=== PATIENT | female | born 1990 | race Caucasian/White ===

== ENCOUNTER 2024-07-01 19:02 | Inpatient (IN) | payer OTHER, SELFPAY ==
[2024-07-01 19:43] VITALS: BP 123/85; PULSE 107; RESP 14; TEMP 36.8; O2SAT 97; BMI 28.2
--- NOTE | 2024-07-01 19:43 | ED.GENADULT ---
HPI - General Adult General Chief complaint: Psychiatric Symptoms Stated complaint: in psychosis Time Seen by Provider: 07/01/24 21:15 Source: patient Mode of arrival: ambulatory Limitations: no limitations History of Present Illness ED Provider: HPI narrative: Patient with psychotic disorder will multiple mental health conditions not taking her medication correctly paranoid about other people seen by [facility] today plan to go as inpatient tomorrow denies any suicidal ideation Related Data Home Medications ?Medication ?Instructions ?Recorded ?Confirmed buspirone 5 mg tablet 5 mg PO TID 07/01/24 07/01/24 lamotrigine 200 mg tablet 200 mg PO BID 07/01/24 07/01/24 atomoxetine 60 mg capsule 60 mg PO BEDTIME 07/02/24 07/02/24 Allergies Allergy/AdvReac Type Severity Reaction Status Date / Time No Known Allergies Allergy Verified 07/01/24 19:47 Review of Systems Review of Systems: Yes all other systems are reviewed and are negative [facility] Social History Social History Patient Tobacco Use Status: Refuse Tobacco use screen Advance Directives: No Advance Directives Information Provided: Yes Do you have a plan to hurt others: No Plan Nutrition Risks: No Nutritional Risk Patient : No Physical Exam ED Vital Signs: Vital Signs - 24 hr 07/01/24 19:43 Temperature 98.2 F Pulse Rate 107 H Respiratory Rate 14 Blood Pressure 123/85 Pulse Oximetry 97 Oxygen Delivery Method Room Air BMI result Body Mass Index 28.2 Appearance: Alert. Oriented X3. No acute distress. Eyes: PERRLA, No Nystagmus ENT: Pharynx normal. Oral Mucosa moist Neck: Normal inspection. Neck supple. CVS: Normal heart rate and rhythm. Pulses normal. Respiratory: No respiratory distress. Equal air entry bilateral, no wheezing/rales/rhonchi Abdomen: Soft and nontender. Bowel sounds are present, no mass palpable, no CVA tenderness Skin: Skin warm and dry. Normal skin color. Normal skin turgor. Extremities: No lower extremity edema. No calf tenderness psych; calm and cooperative denies any SI or HI has any hallucination Neuro: Oriented X 3. No motor deficit. No sensory deficit.No cerebellar signs , cranial nerves II-XII intact Course Course Course Narrative: RME, this is a rapid medical exam performed by Lalo Lee please refer to primary provider for complete H&P- 33-year-old female presents for evaluation of ?psychosis. Per the patient's , the patient has been taking her medications inappropriately for a few months now. The patient has been? manifesting additional personalities. The patient has a history of anxiety depression. Plan for care team consult once medically cleared Reevaluation(s) Reevaluation #1: Patient remained stable overnight no events reported we are waiting for care team eval Time: 08:51 Reevaluation #2: 07/02/2024 at 17:50 hours, Dr. Carlos De's note: The patient was accepted on to the [facility] psychiatric service. I did discuss the patient's section 12 with her and offered her is rate conditional voluntary admission. The patient did agree to sign the conditional voluntary and I do believe at this time she he was able to comprehend room the conditions. The patient will be admitted to the psychiatric service for further treatment. Time: 17:52 Medications Administered Discontinued Medications Generic Name Dose Route Start Last Admin Trade Name Iglesia PRN Reason Stop Dose Admin Buspirone HCl 5 mg 07/02/24 09:15 07/02/24 16:08 Buspirone Hcl 5 Mg Tablet PO Not Given TID LEXI Lamotrigine 200 mg 07/02/24 09:15 07/02/24 10:22 Lamotrigine 100 Mg Tablet PO 200 mg BID LEXI Administration Pt Own Medication ( 80 mg 07/02/24 13:00 07/02/24 14:01 Atomoxetine 80 Mg PO Not Given Capsule) DAILY LEXI Medical Decision Making Medical Decision Making MDM Narrative: Patient is medically clear to go to inpatient psych for psychotic disorder seen by care team already Lab Data MDM Lab Attestation statement: I reviewed the patient's lab results. 07/01/24 20:03 07/01/24 20:03 Labs: Lab Results 07/01/24 07/01/24 Range/Units 20:03 20:04 WBC 6.6 (4.8-10.8) X10*3/uL RBC 4.27 (4.20-5.50) X10*6/uL Hgb 12.6 (12.0-16.0) g/dl Hct 36.9 L (37.0-47.0) % MCV 86.4 (80.0-98.0) fL MCH 29.5 (27.0-33.0) pg MCHC 34.1 (31.0-35.0) g/dl RDW 11.9 (11.0-16.0) % Plt Count 274 (160-400) X10*3/uL MPV 10.0 (9.4-12.3) fL Immature Gran % (Auto) 0.2 (0.0-0.4) % Neut % (Auto) 61.5 (45-73) % Lymph % (Auto) 28.2 (20-40) % [place] % (Auto) 8.5 (2-11) % Eos % (Auto) 0.8 (0-4) % Baso % (Auto) 0.8 (0-2) % Lymph # (Auto) 1.9 (1.2-4.9) X10*3/uL [place] # (Auto) 0.6 (0.1-1.2) X10*3/uL Eos # (Auto) 0.1 (0.0-0.4) X10*3/uL Baso # (Auto) 0.1 (0.0-0.2) X10*3/uL Abs Immat Gran (auto) 0.01 (0.00-0.03) X10*3/uL Absolute Neuts (auto) 4.1 (2.0-8.3) x10*3/uL Absolute Nucleated RBC 0.000 (0.0-0.012) X10*3/uL Nucleated RBC % (auto) 0.0 (0.0-0.2) /100WBC Sodium 140 (135-145) mmol/L Potassium 4.1 (3.3-5.1) mmol/L Chloride 105 (96-108) mmol/L Carbon Dioxide 26 (22-29) mmol/L Anion Gap 13 (12-20) BUN 12 (9-16) mg/dL Creatinine 0.95 (0.5-1.4) mg/dL Estim Creat Clear Calc 97.8 Estimated GFR > 60 Random Glucose 119 H (60-115) mg/dL Calcium 9.8 (8.4-10.2) mg/dL Total Bilirubin 0.4 (0.0-1.0) mg/dL AST 21 (5-31) U/L ALT 18 (0-31) U/L Alkaline Phosphatase 47 (39-117) U/L Total Protein 8.1 H (6.5-8.0) g/dL Albumin 4.4 (3.5-5.0) g/dL Salicylates < 5.0 L (15-30) mg/dL Urine Opiates Screen Not Detected (Not Detect) Ur Buprenorphine Scrn Not Detected (Not Detect) ng/mL Ur Oxycodone Screen Not Detected (Not Detect) ng/mL Urine Methadone Screen Not Detected (Not Detect) ng/mL Urine Fentanyl Screen Not Detected (Not Detect) Acetaminophen < 3 (<30) mcg/mL Ur Barbiturates Screen Not Detected (Not Detect) Ur Phencyclidine Scrn Not Detected (Not Detect) Ur Amphetamines Screen Not Detected (Not Detect) U Benzodiazepines Scrn Not Detected (Not Detect) Urine Cocaine Screen Not Detected (Not Detect) U Marijuana (THC) Screen POSITIVE H (Not Detect) Ethyl Alcohol < 10 mg/dL Discharge Plan Discharge Clinical Impression: Acute psychosis, Chronic schizophrenia, Suicidal ideation Patient Disposition: Still a Patient Interventions: Edgar-Suicide Risk Severity Scale Last Done: 07/01/24 20:45 Admission Worksheet (ED) Last Done: 07/02/24 18:26 Discharge Date/Time: 07/02/24 18:27
[2024-07-01 20:16] LABS: MANUAL DIFF FLAG NO
[2024-07-01 20:17] LABS: Basophils Absolute Auto 0.1 X10*3/uL (0.0-0.2); Basophils Percent Auto 0.8 % (0-2); Eosinophils Absolute Auto 0.1 X10*3/uL (0.0-0.4); Eosinophils Percent Auto 0.8 % (0-4); Hematocrit 36.9 % (37.0-47.0); Hemoglobin 12.6 g/dl (12.0-16.0); Imm Gran Abs Auto 0.01 X10*3/uL (0.00-0.03); Imm Gran Pct Auto 0.2 % (0.0-0.4); Lymphocytes Absolute Auto 1.9 X10*3/uL (1.2-4.9); Lymphocytes Percent Auto 28.2 % (20-40); Mean Corpuscular HGB Conc 34.1 g/dl (31.0-35.0); Mean Corpuscular Hemoglobin 29.5 pg (27.0-33.0); Mean Corpuscular Volume 86.4 fL (80.0-98.0); Monocytes Absolute Auto 0.6 X10*3/uL (0.1-1.2); Monocytes Percent Auto 8.5 % (2-11); Neutrophils Absolute Auto 4.1 x10*3/uL (2.0-8.3); Neutrophils Percent Auto 61.5 % (45-73); Platelet Count 274 X10*3/uL (160-400); Red Blood Count 4.27 X10*6/uL (4.20-5.50); Red Cell Distribution Width 11.9 % (11.0-16.0); White Blood Count 6.6 X10*3/uL (4.8-10.8)
[2024-07-01 20:30] LABS: Amphetamine Screen Urine Not Detected (Not Detect); Barbiturates, Urine Not Detected (Not Detect); Benzodiazepines Screen Urine Not Detected (Not Detect); Buprenorphine Scr Not Detected (Not Detect); Cannabinoid Screen Urine POSITIVE (Not Detect); Cocaine Screen Urine Not Detected (Not Detect); Fentanyl, urine Not Detected (Not Detect); Methadone Screen, Urine Not Detected (Not Detect); Opiate Screen Urine Not Detected (Not Detect); Oxycodone Screen Urine Not Detected (Not Detect); Phencyclidine Screen Urine Not Detected (Not Detect)
[2024-07-01 20:34] LABS: Acetaminophen LAB < 3 mcg/mL (<30); Alanine Aminotransferase 18 U/L (0-31); Albumin Level 4.4 g/dL (3.5-5.0); Alkaline Phosphatase 47 U/L (39-117); Anion Gap 13 (12-20); Aspartate Amino Transferase 21 U/L (5-31); Bilirubin Total 0.4 mg/dL (0.0-1.0); Blood Urea Nitrogen 12 mg/dL (9-16); Calcium 9.8 mg/dL (8.4-10.2); Carbon Dioxide 26 mmol/L (22-29); Chloride 105 mmol/L (96-108); Creatinine Clr Calc Pharmacy 97.8; Estimated Glomerular Filt Rate > 60; Ethanol < 10 mg/dL; Glucose Random 119 mg/dL (60-115); Potassium 4.1 mmol/L (3.3-5.1); Salicylate < 5.0 mg/dL (15-30); Sodium 140 mmol/L (135-145); Total Protein 8.1 g/dL (6.5-8.0)
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
--- NOTE | 2024-07-02 | ECG_ITS ---
Test Reason : R/O PROLONGED QTC Blood Pressure : */* mmHG Vent. Rate : 89 BPM Atrial Rate : 89 BPM P-R Int : 154 ms QRS Dur : 98 ms QT Int : 372 ms P-R-T Axes : 64 53 46 degrees QTcB Int : 452 ms Normal sinus rhythm Normal ECG No previous ECGs available Referred By: Farhat Daley Electronically Signed By: KALEN SOFIA MD
--- NOTE | 2024-07-02 00:50 | PC.NURSE ---
client seems restless moving furniture in rear common area.
--- NOTE | 2024-07-02 01:08 | PC.NURSE ---
client offered for t/w to pursue a medication however client declined
--- NOTE | 2024-07-02 05:46 | PC.NURSE ---
t/w had recognized the lack of test with this client however client presently has her menses, seems unnecessary.
--- NOTE | 2024-07-02 06:21 | PC.NURSE ---
client making some assertive requests to do a wellness check/ phone call earlier than the standard time.
--- NOTE | 2024-07-02 07:31 | PC.NURSE ---
Assumed care of patient at 0645, patient appears to be in no apparent distress, calm and cooperative. Per previous RN, patient was restless all night. Patient remains an inpatient bedsearch
[2024-07-02 08:58] LABS: Appearance Urine Turbid; Color Urine Yellow; Glucose Urine UA Negative (Negative); Leukocyte Esterase Urine Negative (Negative); Nitrite Urine Negative (Negative); PH 5.5 (5.0-9.0); Specific Gravity - Urine >= 1.030 (1.005-1.025); Urine Blood Negative (Negative); Urine Ketones Trace mg/dL (Negative); Urine Protein Trace mg/dL (Neg-Trace)
[2024-07-02 08:59] LABS: UPreg QC Valid YES; Urine Pregnancy NEGATIVE (NEGATIVE)
[2024-07-02] MEDS: lamoTRIgine 100 MG TABLET 200 MG PO (10:22)
[2024-07-02] MEDS: busPIRone HCl 5 MG TABLET PO (10:22)
--- NOTE | 2024-07-02 11:12 | PHA.MEDREC ---
Pharmacy Consult ? Medication Reconciliation Pharmacy has REVIEWED the medication reconciliation completed BY NURSING. Claims match.
[2024-07-02 19:09] VITALS: BMI 28.1
[2024-07-02 20:00] VITALS: BP 118/83; PULSE 101; RESP 16; TEMP 36.7; O2SAT 98
--- NOTE | 2024-07-03 02:41 | HE.NUR.EV ---
Status Change: Pt extremely disorganized, wandering into other pt rooms, found using bathroom in another patient's room, after this went to own room and barricaded the door with desk stool Immediate Actions Taken: patient redirected Notifications: Provider Further Monitoring and Treatment: patient placed on 5 minute checks at this time
--- NOTE | 2024-07-03 07:38 | PC.NURSE ---
SHIFT NOTE: Pt admitted for psychosis, denies SI/HI/AVH, denies depression, endorses anxiety stating I'm anxious only in relation to like, where I am and who else is here and why I'm here vs why they're here Pt stops and starts sentences, poor eye contact, darting focus. Pt has difficulty completing thoughts, rapid changes in facial expression at times, rapid changes in mood during conversations. Pt will be polite with calm demeanor when starting to answer question then suddenly become irritated and brushing RN away. Patient expresses I have a feeling like anxiety, but it's like, deeper in my body Pt expresses fear over being on unit with men, fear of having a roommate, barricaded bedroom door overnight. Pt frequently pacing unit, leaving bits of tissue all over floors and chairs on unit. Pt walking into other patient rooms requiring frequent redirection. Pt does avoid being too close to others, will take backward steps and stand at a distance including during one on one interview interactions with RN.
[2024-07-03 07:59] VITALS: BP 138/97; PULSE 93; RESP 16; TEMP 36.8; O2SAT 98
[2024-07-03 08:32] LABS: Cholesterol 146 mg/dL (<200); HDL Cholesterol 51 mg/dL (>40); LDL Cholesterol Calculated 88 mg/dL (<100); Triglycerides 39 mg/dL (<150)
[2024-07-03 08:39] LABS: Estimated Average Glucose 94 mg/dL; Hemoglobin A1C 105.8173 umol/L; Hemoglobin A1c % 4.9 % (<6.0); Total Hemoglobin (HGBA1C) 3489.2398 umol/L
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
[2024-07-03 19:43] VITALS: BP 135/84; PULSE 119; RESP 16; TEMP 36.9; O2SAT 96
[2024-07-03] MEDS: busPIRone HCl 5 MG TABLET PO (21:34)
[2024-07-03] MEDS: lamoTRIgine 100 MG TABLET 200 MG PO (21:34)
[2024-07-04 07:00] VITALS: BMI 27.9
[2024-07-04 08:36] VITALS: BP 128/87; PULSE 117; TEMP 36.6; O2SAT 96
[2024-07-04] MEDS: lamoTRIgine 100 MG TABLET 200 MG PO (10:02)
[2024-07-04] MEDS: busPIRone HCl 5 MG TABLET PO ×2 (10:02→15:18)
--- NOTE | 2024-07-04 11:42 | HO.PSYCHPN ---
Subjective Subjective Date of Service: 07/04/24 Reason For Visit: Psychosis Healthcare Proxy: No Guardianship: No Medical Problems Affecting Mental Status: No Interim History: Collateral contact with pt's Angela and psychiatrist to review medications. Both report current sx are new to pt, possibly due to therapy as pt does not have coping skills to manage her emotions and may have been processing issues she may not have been prepared to work with. Will use Risperdal as grounding med. Reviewed with pt who is dissociative this afternoon, but in agreement. Medication Compliance: Yes Side effects from medications: No Attending Groups: No Review of Systems Acute medical concerns: No Review of Systems Review of Systems Yes all other systems are reviewed and are negative Mental Status Exam Mental Status Exam Patient Appearance: Fatigued and Appropriate Patient Orientation: Person, Place, Time and Situation Level of Consciousness: Alert Patient Behavior: Guarded and Talkative Mood Description: Anxious and Apprehensive Affect Description: Anxious and Apprehensive Patient Cognition Impaired: No Ability to Follow Directions: Fair Speech Pattern: Spontaneous Speech Memory Description: Episodic Impaired Hallucinations: Auditory and Visual Perceptual Disturbances: Depersonalization and Derealization Thought Process: Distracted, Rumination and Goal Oriented Thought Content: positive for Goal Oriented and positive for Suicidal Ideation Depressive Symptoms: Thoughts of /Suicide Judgement: Fair Diagnostics Vital Signs (24Hr): Vital Signs - 24 hr 07/03/24 19:43 07/04/24 08:36 Temperature 98.5 F 97.8 F Pulse Rate 119 H 117 H Respiratory Rate 16 Blood Pressure 135/84 128/87 Pulse Oximetry 96 96 Oxygen Delivery Method Room Air Room Air BMI result Body Mass Index 28.1 Labs 07/01/24 20:03 07/01/24 20:03 Labs: Laboratory Results - last 48 hr 07/03/24 07/03/24 07:51 07:52 Estimat Average Glucose 94 Hemoglobin A1c % 4.9 Triglycerides 39 Cholesterol 146 LDL Cholesterol, Calc 88 HDL Cholesterol 51 TSH 1.60 Medications Medications Current Medications Acetaminophen (Acetaminophen 325 Mg Tablet) 650 mg PO Q6H PRN PRN Reason: Headache/Pain, Scale 1-10 Al Hydroxide/Mg Hydroxide (Magnesium Hydrox/Alum Hydrox 30 Ml Oral.Susp) 30 ml PO Q6H PRN PRN Reason: Heartburn/Nausea Buspirone HCl (Buspirone Hcl 5 Mg Tablet) 5 mg PO TID [facility] Last Admin: 07/04/24 10:02 Dose: 5 mg Hydroxyzine HCl (Hydroxyzine Hcl 25 Mg Tablet) 25 mg PO Q6H PRN PRN Reason: mild anxiety Lamotrigine (Lamotrigine 100 Mg Tablet) 200 mg PO BID [facility] Last Admin: 07/04/24 10:02 Dose: 200 mg Magnesium Hydroxide (Milk Of Magnesia 30 Ml Oral.Susp) 30 ml PO DAILY PRN PRN Reason: Constipation Nicotine (Nicotine 21 Mg Patch.Td24) 21 mg TRANSDERMA DAILY PRN PRN Reason: smoking cessation Nicotine Polacrilex (Nicotine Polacrilex 2 Mg Gum) 4 mg BUCCAL Q2H PRN PRN Reason: Nicotine Cravings Pt Own Medication ( (Strattera 60 Mg)) 60 mg PO DAILY [facility] Olanzapine (Olanzapine 5 Mg Tablet) 5 mg PO TID PRN PRN Reason: agitation Trazodone HCl (Trazodone Hcl 50 Mg Tablet) 50 mg PO BEDTIME MRX1 PRN PRN Reason: Insomnia Allergies Allergies Allergy/AdvReac Type Severity Reaction Status Date / Time No Known Allergies Allergy Verified 07/01/24 19:47 Assessment & Plan Assessment & Plan (1) PTSD (post-traumatic stress disorder): Status: Acute Code(s): F43.10 - Post-traumatic stress disorder, unspecified Plan PTSD. Plan: Admit, CV, 15 minute checks Collateral Contacts Diagnostics as needed Medication eval Full milieu Discharge planning 07/04: Scheduled Risperdal along with prn for grounding. Reason for continued inpatient stay Substantial Risk for: rapid decompensation Time Spent With Patient Time: Total time managing care of this patient today ____ minutes.
[2024-07-04] MEDS: STRATTERA 60 MG 60 EACH PO (11:46)
[2024-07-04] MEDS: hydrOXYzine HCL 25 MG TABLET PO (12:25)
[2024-07-04 15:49] VITALS: BMI 27.9
[2024-07-04 20:00] VITALS: BP 131/87; PULSE 118; RESP 16; TEMP 36.6; O2SAT 99
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
[2024-07-05] MEDS: Haloperidol Lactate 5 MG/ML VIAL IM (00:18)
[2024-07-05] MEDS: LORazepam 2 MG/ML VIAL IM (00:18)
[2024-07-05] MEDS: diphenhydrAMINE HCL 50 MG/ML VIAL IM (00:18)
--- NOTE | 2024-07-05 00:23 | HO.BHRESTREX ---
Behavioral Restraint Exam Behavioral Health Restraint Exam Type of Restraint: Physical Hold and Medication Reason for Restraint: Substantial Risk of Harm to Others Medical Concerns for Restraint: No medical concerns, pt w/o acute inj / no noted resp/VS abnormalities Behavioral Assessment / Plan: No further behavioral concerns, continue current plan.
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
[2024-07-05 08:00] VITALS: BP 122/87; PULSE 98; TEMP 36.6; O2SAT 97
[2024-07-05] MEDS: risperiDONE 1 MG TABLET PO (09:13)
[2024-07-05] MEDS: busPIRone HCl 5 MG TABLET PO ×3 (09:13→20:38)
[2024-07-05] MEDS: STRATTERA 60 MG 60 EACH PO (09:13)
[2024-07-05] MEDS: lamoTRIgine 100 MG TABLET 200 MG PO ×2 (09:13→20:38)
--- NOTE | 2024-07-05 10:37 | P.PNPSI_ITS ---
Subjective Subjective Date of Service: 07/05/24 Reason For Visit: Psychosis Subjective Notes: Conditional Voluntary Healthcare Proxy: No Guardianship: No Medical Problems Affecting Mental Status: No Interim History: Per team, pt required restraint last evening-jumped over the nursing station to pull fire alarm as she thought she saw a weapon and felt she needed to inform police. Discussed addition of Risperdal again. Brief meeting with pt, continues dissociative and overwhelmed. Medication Compliance: Yes Side effects from medications: No Attending Groups: No Review of Systems Acute medical concerns: No Review of Systems Review of Systems Yes all other systems are reviewed and are negative Mental Status Exam Mental Status Exam Patient Appearance: Fatigued and Appropriate Patient Orientation: Person, Place, Time and Situation Level of Consciousness: Alert Patient Behavior: Guarded and Talkative Mood Description: Anxious and Apprehensive Affect Description: Anxious and Apprehensive Patient Cognition Impaired: No Ability to Follow Directions: Fair Speech Pattern: Spontaneous Speech Memory Description: Episodic Impaired Hallucinations: Auditory and Visual Perceptual Disturbances: Depersonalization and Derealization Thought Process: Distracted, Rumination and Goal Oriented Thought Content: positive for Goal Oriented and positive for Suicidal Ideation Depressive Symptoms: Thoughts of /Suicide Judgement: Fair Diagnostics Vital Signs (24Hr): Vital Signs - 24 hr 07/04/24 20:00 Temperature 97.8 F Pulse Rate 118 H Respiratory Rate 16 Blood Pressure 131/87 Pulse Oximetry 99 Oxygen Delivery Method Room Air BMI result Body Mass Index 27.9 Labs 07/01/24 20:03 07/01/24 20:03 Medications Medications Current Medications Acetaminophen (Acetaminophen 325 Mg Tablet) 650 mg PO Q6H PRN PRN Reason: Headache/Pain, Scale 1-10 Al Hydroxide/Mg Hydroxide (Magnesium Hydrox/Alum Hydrox 30 Ml Oral.Susp) 30 ml PO Q6H PRN PRN Reason: Heartburn/Nausea Buspirone HCl (Buspirone Hcl 5 Mg Tablet) 5 mg PO TID [facility] Last Admin: 07/05/24 09:13 Dose: 5 mg Hydroxyzine HCl (Hydroxyzine Hcl 25 Mg Tablet) 25 mg PO Q6H PRN PRN Reason: mild anxiety Last Admin: 07/04/24 12:25 Dose: 25 mg Lamotrigine (Lamotrigine 100 Mg Tablet) 200 mg PO BID [facility] Last Admin: 07/05/24 09:13 Dose: 200 mg Magnesium Hydroxide (Milk Of Magnesia 30 Ml Oral.Susp) 30 ml PO DAILY PRN PRN Reason: Constipation Nicotine (Nicotine 21 Mg Patch.Td24) 21 mg TRANSDERMA DAILY PRN PRN Reason: smoking cessation Nicotine Polacrilex (Nicotine Polacrilex 2 Mg Gum) 4 mg BUCCAL Q2H PRN PRN Reason: Nicotine Cravings Pt Own Medication ( (Strattera 60 Mg)) 60 mg PO DAILY [facility] Last Admin: 07/05/24 09:13 Dose: 60 mg Risperidone (Risperidone 1 Mg Tablet) 1 mg PO BID [facility] Last Admin: 07/05/24 09:13 Dose: 1 mg Risperidone (Risperidone 1 Mg Tablet) 1 mg PO BID PRN PRN Reason: psychosis, dissociation,agitation Trazodone HCl (Trazodone Hcl 50 Mg Tablet) 50 mg PO BEDTIME MRX1 PRN PRN Reason: Insomnia Allergies Allergies Allergy/AdvReac Type Severity Reaction Status Date / Time No Known Allergies Allergy Verified 07/01/24 19:47 Assessment & Plan Assessment & Plan (1) PTSD (post-traumatic stress disorder): Status: Acute Code(s): F43.10 - Post-traumatic stress disorder, unspecified Plan PTSD. Plan: Admit, CV, 15 minute checks Collateral Contacts Diagnostics as needed Medication eval Full milieu Discharge planning 07/05: Continue current regime Reason for continued inpatient stay Substantial Risk for: rapid decompensation Time Spent With Patient Time: Total time managing care of this patient today ____ minutes.
[2024-07-05 20:00] VITALS: RESP 15
--- NOTE | 2024-07-06 09:25 | P.PNPSI_ITS ---
Subjective Subjective Date of Service: 07/06/24 Reason For Visit: Psychosis Interim History: Taking Risperdal more consistently and seeing some symptom relief. Team reports sx are more acute in the a.m. and do improve as the day progresses. Appears less fearful and more relaxed. Medication Compliance: Yes Side effects from medications: No Attending Groups: Intermittent Review of Systems Acute medical concerns: No Medical Review of Systems: unchanged Review of Systems Review of Systems Yes all other systems are reviewed and are negative Mental Status Exam Mental Status Exam Patient Appearance: Fatigued and Appropriate Patient Orientation: Person, Place, Time and Situation Level of Consciousness: Alert Patient Behavior: Guarded and Talkative Mood Description: Anxious and Apprehensive Affect Description: Anxious and Apprehensive Patient Cognition Impaired: No Ability to Follow Directions: Fair Speech Pattern: Spontaneous Speech Memory Description: Episodic Impaired Hallucinations: Auditory and Visual Perceptual Disturbances: Depersonalization and Derealization Thought Process: Distracted, Rumination and Goal Oriented Thought Content: positive for Goal Oriented and positive for Suicidal Ideation Depressive Symptoms: Thoughts of /Suicide Judgement: Fair Diagnostics Vital Signs (24Hr): Vital Signs - 24 hr 07/05/24 20:00 Respiratory Rate 15 BMI result Body Mass Index 27.9 Labs 07/01/24 20:03 07/01/24 20:03 Medications Medications Current Medications Acetaminophen (Acetaminophen 325 Mg Tablet) 650 mg PO Q6H PRN PRN Reason: Headache/Pain, Scale 1-10 Al Hydroxide/Mg Hydroxide (Magnesium Hydrox/Alum Hydrox 30 Ml Oral.Susp) 30 ml PO Q6H PRN PRN Reason: Heartburn/Nausea Buspirone HCl (Buspirone Hcl 5 Mg Tablet) 5 mg PO TID [facility] Last Admin: 07/05/24 20:38 Dose: 5 mg Hydroxyzine HCl (Hydroxyzine Hcl 25 Mg Tablet) 25 mg PO Q6H PRN PRN Reason: mild anxiety Last Admin: 07/04/24 12:25 Dose: 25 mg Lamotrigine (Lamotrigine 100 Mg Tablet) 200 mg PO BID [facility] Last Admin: 07/05/24 20:38 Dose: 200 mg Magnesium Hydroxide (Milk Of Magnesia 30 Ml Oral.Susp) 30 ml PO DAILY PRN PRN Reason: Constipation Nicotine (Nicotine 21 Mg Patch.Td24) 21 mg TRANSDERMA DAILY PRN PRN Reason: smoking cessation Nicotine Polacrilex (Nicotine Polacrilex 2 Mg Gum) 4 mg BUCCAL Q2H PRN PRN Reason: Nicotine Cravings Pt Own Medication ( (Strattera 60 Mg)) 60 mg PO DAILY [facility] Last Admin: 07/05/24 09:13 Dose: 60 mg Risperidone (Risperidone 1 Mg Tablet) 1 mg PO BID [facility] Last Admin: 07/05/24 20:43 Dose: Not Given Risperidone (Risperidone 1 Mg Tablet) 1 mg PO BID PRN PRN Reason: psychosis, dissociation,agitation Trazodone HCl (Trazodone Hcl 50 Mg Tablet) 50 mg PO BEDTIME MRX1 PRN PRN Reason: Insomnia Allergies Allergies Allergy/AdvReac Type Severity Reaction Status Date / Time No Known Allergies Allergy Verified 07/01/24 19:47 Assessment & Plan Assessment & Plan (1) PTSD (post-traumatic stress disorder): Status: Acute Code(s): F43.10 - Post-traumatic stress disorder, unspecified Plan PTSD. Plan: Admit, CV, 15 minute checks Collateral Contacts Diagnostics as needed Medication eval Full milieu Discharge planning 07/05: Continue current regime 07/06: Continue current regime Reason for continued inpatient stay Substantial Risk for: rapid decompensation Time Spent With Patient Time: Total time managing care of this patient today ____ minutes.
[2024-07-06] MEDS: busPIRone HCl 5 MG TABLET PO ×3 (09:50→22:09)
[2024-07-06] MEDS: STRATTERA 60 MG 60 EACH PO (09:50)
[2024-07-06] MEDS: risperiDONE 1 MG TABLET PO ×2 (09:50→22:09)
[2024-07-06] MEDS: lamoTRIgine 100 MG TABLET 200 MG PO ×2 (09:50→22:09)
[2024-07-07 08:00] VITALS: BP 144/86; PULSE 105; RESP 20; TEMP 37.3; O2SAT 98
--- NOTE | 2024-07-07 09:34 | HO.PSYCHPN ---
Subjective Subjective Date of Service: 07/07/24 Reason For Visit: Psychosis Subjective Notes: Conditional Voluntary Healthcare Proxy: No Guardianship: No Medical Problems Affecting Mental Status: No Interim History: Some improvement per pt and team however continues with paranoia and risk of elopement. States Angie is helping and she is compliant. Will consider increase for 07/08. Told team this afternoon she heard voices in the vent of a microphone broadcasting her trauma Medication Compliance: Yes Side effects from medications: No Attending Groups: Intermittent Review of Systems Acute medical concerns: No Review of Systems Review of Systems denies Mental Status Exam Mental Status Exam Patient Appearance: Fatigued and Appropriate Patient Orientation: Person, Place, Time and Situation Level of Consciousness: Alert Patient Behavior: Guarded and Talkative Mood Description: Anxious and Apprehensive Affect Description: Anxious and Apprehensive Patient Cognition Impaired: No Ability to Follow Directions: Fair Speech Pattern: Spontaneous Speech Memory Description: Episodic Impaired Hallucinations: Auditory and Visual Perceptual Disturbances: Depersonalization and Derealization Thought Process: Distracted, Rumination and Goal Oriented Thought Content: positive for Goal Oriented and positive for Suicidal Ideation Depressive Symptoms: Thoughts of /Suicide Judgement: Fair Diagnostics Vital Signs (24Hr): BMI result Body Mass Index 27.9 Labs 07/01/24 20:03 07/01/24 20:03 Medications Medications Current Medications Acetaminophen (Acetaminophen 325 Mg Tablet) 650 mg PO Q6H PRN PRN Reason: Headache/Pain, Scale 1-10 Al Hydroxide/Mg Hydroxide (Magnesium Hydrox/Alum Hydrox 30 Ml Oral.Susp) 30 ml PO Q6H PRN PRN Reason: Heartburn/Nausea Buspirone HCl (Buspirone Hcl 5 Mg Tablet) 5 mg PO TID [facility] Last Admin: 07/06/24 22:09 Dose: 5 mg Hydroxyzine HCl (Hydroxyzine Hcl 25 Mg Tablet) 25 mg PO Q6H PRN PRN Reason: mild anxiety Last Admin: 07/04/24 12:25 Dose: 25 mg Lamotrigine (Lamotrigine 100 Mg Tablet) 200 mg PO BID [facility] Last Admin: 07/06/24 22:09 Dose: 200 mg Magnesium Hydroxide (Milk Of Magnesia 30 Ml Oral.Susp) 30 ml PO DAILY PRN PRN Reason: Constipation Nicotine (Nicotine 21 Mg Patch.Td24) 21 mg TRANSDERMA DAILY PRN PRN Reason: smoking cessation Nicotine Polacrilex (Nicotine Polacrilex 2 Mg Gum) 4 mg BUCCAL Q2H PRN PRN Reason: Nicotine Cravings Pt Own Medication ( (Strattera 60 Mg)) 60 mg PO DAILY [facility] Last Admin: 07/06/24 09:50 Dose: 60 mg Risperidone (Risperidone 1 Mg Tablet) 1 mg PO BID [facility] Last Admin: 07/06/24 22:09 Dose: 1 mg Risperidone (Risperidone 1 Mg Tablet) 1 mg PO BID PRN PRN Reason: psychosis, dissociation,agitation Trazodone HCl (Trazodone Hcl 50 Mg Tablet) 50 mg PO BEDTIME MRX1 PRN PRN Reason: Insomnia Allergies Allergies Allergy/AdvReac Type Severity Reaction Status Date / Time No Known Allergies Allergy Verified 07/01/24 19:47 Assessment & Plan Assessment & Plan (1) PTSD (post-traumatic stress disorder): Status: Acute Code(s): F43.10 - Post-traumatic stress disorder, unspecified Plan PTSD. Plan: Admit, CV, 15 minute checks Collateral Contacts Diagnostics as needed Medication eval Full milieu Discharge planning 07/05: Continue current regime 07/07: Continue rx and risperdal Reason for continued inpatient stay Substantial Risk for: rapid decompensation Time Spent With Patient Time: Total time managing care of this patient today ____ minutes.
[2024-07-07] MEDS: STRATTERA 60 MG 60 EACH PO (11:09)
[2024-07-07] MEDS: lamoTRIgine 100 MG TABLET 200 MG PO ×2 (11:09→20:51)
[2024-07-07] MEDS: busPIRone HCl 5 MG TABLET PO ×3 (11:09→20:51)
[2024-07-07] MEDS: risperiDONE 1 MG TABLET PO ×3 (11:09→20:51)
[2024-07-07 19:34] VITALS: BP 152/88; PULSE 127; RESP 18; O2SAT 94
--- NOTE | 2024-07-08 08:25 | HO.PSYCHPN ---
Subjective Subjective Date of Service: 07/08/24 Reason For Visit: Psychosis Subjective Notes: Conditional Voluntary Healthcare Proxy: No Guardianship: No Medical Problems Affecting Mental Status: No Interim History: Risperdal increased. Pt asking team today to medicate symptoms which is a change in her position on meds and a decrease in her fear of treatment. Medication Compliance: Yes Side effects from medications: No Attending Groups: Intermittent Review of Systems Acute medical concerns: No Medical Review of Systems: unchanged Review of Systems Review of Systems Yes all other systems are reviewed and are negative Mental Status Exam Mental Status Exam Patient Appearance: Fatigued and Appropriate Patient Orientation: Person, Place, Time and Situation Level of Consciousness: Alert Patient Behavior: Guarded and Talkative Mood Description: Anxious and Apprehensive Affect Description: Anxious and Apprehensive Patient Cognition Impaired: No Ability to Follow Directions: Fair Speech Pattern: Spontaneous Speech Memory Description: Episodic Impaired Hallucinations: Auditory and Visual Perceptual Disturbances: Depersonalization and Derealization Thought Process: Distracted, Rumination and Goal Oriented Thought Content: positive for Goal Oriented and positive for Suicidal Ideation Depressive Symptoms: Thoughts of /Suicide Judgement: Fair Diagnostics Vital Signs (24Hr): Vital Signs - 24 hr 07/07/24 19:34 Pulse Rate 127 H Respiratory Rate 18 Blood Pressure 152/88 H Pulse Oximetry 94 Oxygen Delivery Method Room Air BMI result Body Mass Index 27.9 Labs 07/01/24 20:03 07/01/24 20:03 Medications Medications Current Medications Acetaminophen (Acetaminophen 325 Mg Tablet) 650 mg PO Q6H PRN PRN Reason: Headache/Pain, Scale 1-10 Al Hydroxide/Mg Hydroxide (Magnesium Hydrox/Alum Hydrox 30 Ml Oral.Susp) 30 ml PO Q6H PRN PRN Reason: Heartburn/Nausea Buspirone HCl (Buspirone Hcl 5 Mg Tablet) 5 mg PO TID [facility] Last Admin: 07/07/24 20:51 Dose: 5 mg Hydroxyzine HCl (Hydroxyzine Hcl 25 Mg Tablet) 25 mg PO Q6H PRN PRN Reason: mild anxiety Last Admin: 07/04/24 12:25 Dose: 25 mg Lamotrigine (Lamotrigine 100 Mg Tablet) 200 mg PO BID [facility] Last Admin: 07/07/24 20:51 Dose: 200 mg Magnesium Hydroxide (Milk Of Magnesia 30 Ml Oral.Susp) 30 ml PO DAILY PRN PRN Reason: Constipation Nicotine (Nicotine 21 Mg Patch.Td24) 21 mg TRANSDERMA DAILY PRN PRN Reason: smoking cessation Nicotine Polacrilex (Nicotine Polacrilex 2 Mg Gum) 4 mg BUCCAL Q2H PRN PRN Reason: Nicotine Cravings Pt Own Medication ( (Strattera 60 Mg)) 60 mg PO DAILY [facility] Last Admin: 07/07/24 11:09 Dose: 60 mg Risperidone (Risperidone 1 Mg Tablet) 1 mg PO BID [facility] Last Admin: 07/07/24 20:51 Dose: 1 mg Risperidone (Risperidone 1 Mg Tablet) 1 mg PO BID PRN PRN Reason: psychosis, dissociation,agitation Last Admin: 07/07/24 15:31 Dose: 1 mg Trazodone HCl (Trazodone Hcl 50 Mg Tablet) 50 mg PO BEDTIME MRX1 PRN PRN Reason: Insomnia Allergies Allergies Allergy/AdvReac Type Severity Reaction Status Date / Time No Known Allergies Allergy Verified 07/01/24 19:47 Assessment & Plan Assessment & Plan (1) PTSD (post-traumatic stress disorder): Status: Acute Code(s): F43.10 - Post-traumatic stress disorder, unspecified Plan PTSD. Plan: Admit, CV, 15 minute checks Collateral Contacts Diagnostics as needed Medication eval Full milieu Discharge planning 07/05: Continue current regime 07/06: Continue current regime 07/08: Increase Risperdal to 2 mg bid Reason for continued inpatient stay Substantial Risk for: rapid decompensation Time Spent With Patient Time: Total time managing care of this patient today ____ minutes.
[2024-07-08] MEDS: risperiDONE 1 MG TABLET PO (12:33)
[2024-07-08] MEDS: lamoTRIgine 100 MG TABLET 200 MG PO ×2 (12:33→21:02)
[2024-07-08] MEDS: busPIRone HCl 5 MG TABLET PO ×3 (12:33→21:02)
[2024-07-08] MEDS: STRATTERA 60 MG 60 EACH PO (12:34)
[2024-07-08] MEDS: hydrOXYzine HCL 25 MG TABLET PO (14:01)
[2024-07-08] MEDS: risperiDONE 2 MG TABLET PO ×2 (14:10→21:02)
[2024-07-09 08:00] VITALS: BP 130/79; PULSE 106; RESP 18; TEMP 37.1; O2SAT 100
[2024-07-09] MEDS: lamoTRIgine 100 MG TABLET 200 MG PO ×2 (09:01→22:33)
[2024-07-09] MEDS: busPIRone HCl 5 MG TABLET PO ×3 (09:01→22:33)
[2024-07-09] MEDS: risperiDONE 2 MG TABLET PO ×2 (09:01→22:33)
[2024-07-09] MEDS: STRATTERA 60 MG 60 EACH PO (09:07)
--- NOTE | 2024-07-09 09:25 | P.PNPSI_ITS ---
Subjective Subjective Date of Service: 07/09/24 Reason For Visit: Psychosis Interim History: Met with patient; discussed with team; reviewed chart pt reports she is a little less anxious but feels AH remains and maybe even increased... she reports b/l hand tremors which are observable, which she says started when Risperdal was increased to 2mg BID. She asked if dose can be lessened... going to groups Mental Status Exam Mental Status Exam Narrative: Pt is alert and oriented; behavior is cooperative, isolative but friendly on approach and calm; patient is not in distress; dressed in casual attire with head scarf; adequate grooming; mood is described as anxious and affect congruent; eye contact appropriate; Speech is a little soft; normal rate and prosody and not pressured; some psychomotor retardation present; thought process is organized and goal directed; Thought content with some paranoid delusional thinking; on tx; denies any SI/HI. AH present; Patients insight and judgment impaired but somewhat improved Diagnostics Vital Signs (24Hr): Vital Signs - 24 hr 07/09/24 08:00 Temperature 98.7 F Pulse Rate 106 H Respiratory Rate 18 Blood Pressure 130/79 Pulse Oximetry 100 Oxygen Delivery Method Room Air BMI result Body Mass Index 27.9 Labs 07/01/24 20:03 07/01/24 20:03 Medications Medications Current Medications Acetaminophen (Acetaminophen 325 Mg Tablet) 650 mg PO Q6H PRN PRN Reason: Headache/Pain, Scale 1-10 Al Hydroxide/Mg Hydroxide (Magnesium Hydrox/Alum Hydrox 30 Ml Oral.Susp) 30 ml PO Q6H PRN PRN Reason: Heartburn/Nausea Buspirone HCl (Buspirone Hcl 5 Mg Tablet) 5 mg PO TID [facility] Last Admin: 07/09/24 09:01 Dose: 5 mg Hydroxyzine HCl (Hydroxyzine Hcl 25 Mg Tablet) 25 mg PO Q6H PRN PRN Reason: mild anxiety Last Admin: 07/08/24 14:01 Dose: 25 mg Lamotrigine (Lamotrigine 100 Mg Tablet) 200 mg PO BID [facility] Last Admin: 07/09/24 09:01 Dose: 200 mg Magnesium Hydroxide (Milk Of Magnesia 30 Ml Oral.Susp) 30 ml PO DAILY PRN PRN Reason: Constipation Nicotine (Nicotine 21 Mg Patch.Td24) 21 mg TRANSDERMA DAILY PRN PRN Reason: smoking cessation Nicotine Polacrilex (Nicotine Polacrilex 2 Mg Gum) 4 mg BUCCAL Q2H PRN PRN Reason: Nicotine Cravings Pt Own Medication ( (Strattera 60 Mg)) 60 mg PO DAILY [facility] Last Admin: 07/09/24 09:07 Dose: 60 mg Risperidone (Risperidone 1 Mg Tablet) 1 mg PO BID PRN PRN Reason: psychosis, dissociation,agitation Last Admin: 07/08/24 12:33 Dose: 1 mg Risperidone (Risperidone 2 Mg Tablet) 2 mg PO BID [facility] Last Admin: 07/09/24 09:01 Dose: 2 mg Trazodone HCl (Trazodone Hcl 50 Mg Tablet) 50 mg PO BEDTIME MRX1 PRN PRN Reason: Insomnia Allergies Allergies Allergy/AdvReac Type Severity Reaction Status Date / Time No Known Allergies Allergy Verified 07/01/24 19:47 Assessment & Plan Assessment & Plan (1) PTSD (post-traumatic stress disorder): Status: Acute Code(s): F43.10 - Post-traumatic stress disorder, unspecified Plan PTSD. Plan: Admit, CV, 15 minute checks Collateral Contacts Diagnostics as needed Medication eval Full milieu Discharge planning 07/05: Continue current regime 07/06: Continue current regime 07/08: Increase Risperdal to 2 mg bid 07/09 pt reports she is a little less anxious but feels AH remains and maybe even increased... she reports b/l hand tremors which are observable, which she says started when Risperdal was increased to 2mg BID. She asked if dose can be lessened... -going to groups -some paranoid thinking? -lowered risperdal to 1mg daily and 2mg qhs Patient educated on: diagnosis and medication risk/benefits Informed Consent: understands and further education needed Reason for continued inpatient stay Substantial Risk for: inability to function Time Spent With Patient Time: Total time managing care of this patient today ____ minutes.
[2024-07-09 13:50] LABS: Glucose, Whole Blood 96 mg/dL (60-115)
[2024-07-09 20:00] VITALS: BP 115/68; PULSE 67; TEMP 36.7; O2SAT 100
[2024-07-10 08:00] VITALS: BP 130/92; PULSE 107; TEMP 36.4; O2SAT 98
[2024-07-10] MEDS: busPIRone HCl 5 MG TABLET PO (08:41)
[2024-07-10] MEDS: lamoTRIgine 100 MG TABLET 200 MG PO (08:41)
[2024-07-10] MEDS: STRATTERA 60 MG 60 EACH PO (08:41)
--- NOTE | 2024-07-10 13:11 | P.PNPSI_ITS ---
Subjective Subjective Date of Service: 07/10/24 Reason For Visit: Psychosis Subjective Notes: Conditional Voluntary Healthcare Proxy: No Guardianship: No Medical Problems Affecting Mental Status: No Interim History: Bilateral hand tremor. Risperdal decreased 07/09 without effect. Pt refusing med at this point. Not trusting of team. Reports high anxiety, over-thinking her trauma, health, sleep, meds. She states she is from a family who did not believe in medications and struggles with this. Review of olanzapine option. Pt believes she is bruised due to meds. She agrees to increase buspirone to 10 mg tid, then changed her mind. Very fearful and guarded today. She agrees to labs. Medication Compliance: Intermittent Side effects from medications: Yes (bilateral hand tremor) Attending Groups: No Review of Systems Acute medical concerns: No Medical Review of Systems: unchanged Review of Systems Review of Systems bruising, hand tremor Mental Status Exam Mental Status Exam Patient Appearance: Fatigued and Appropriate Patient Orientation: Person, Place, Time and Situation Level of Consciousness: Alert Patient Behavior: Guarded and Talkative Mood Description: Anxious and Apprehensive Affect Description: Anxious and Apprehensive Patient Cognition Impaired: No Ability to Follow Directions: Fair Speech Pattern: Spontaneous Speech Memory Description: Episodic Impaired Hallucinations: Auditory and Visual Perceptual Disturbances: Depersonalization and Derealization Thought Process: Distracted, Rumination and Goal Oriented Thought Content: positive for Goal Oriented and positive for Suicidal Ideation Depressive Symptoms: Thoughts of /Suicide Judgement: Fair Diagnostics Vital Signs (24Hr): Vital Signs - 24 hr 07/09/24 20:00 07/10/24 08:00 Temperature 98.1 F 97.5 F Pulse Rate 67 107 H Blood Pressure 115/68 130/92 H Pulse Oximetry 100 98 Oxygen Delivery Method Room Air Room Air BMI result Body Mass Index 27.9 Labs 07/11/24 09:50 07/11/24 09:50 Labs: Laboratory Results - last 48 hr 07/09/24 12:33 POC Glucose 96 Medications Medications Current Medications Acetaminophen (Acetaminophen 325 Mg Tablet) 650 mg PO Q6H PRN PRN Reason: Headache/Pain, Scale 1-10 Al Hydroxide/Mg Hydroxide (Magnesium Hydrox/Alum Hydrox 30 Ml Oral.Susp) 30 ml PO Q6H PRN PRN Reason: Heartburn/Nausea Buspirone HCl (Buspirone Hcl 5 Mg Tablet) 5 mg PO TID [facility] Last Admin: 07/10/24 08:41 Dose: 5 mg Hydroxyzine HCl (Hydroxyzine Hcl 25 Mg Tablet) 25 mg PO Q6H PRN PRN Reason: mild anxiety Last Admin: 07/08/24 14:01 Dose: 25 mg Lamotrigine (Lamotrigine 100 Mg Tablet) 200 mg PO BID [facility] Last Admin: 07/10/24 08:41 Dose: 200 mg Magnesium Hydroxide (Milk Of Magnesia 30 Ml Oral.Susp) 30 ml PO DAILY PRN PRN Reason: Constipation Nicotine (Nicotine 21 Mg Patch.Td24) 21 mg TRANSDERMA DAILY PRN PRN Reason: smoking cessation Nicotine Polacrilex (Nicotine Polacrilex 2 Mg Gum) 4 mg BUCCAL Q2H PRN PRN Reason: Nicotine Cravings Pt Own Medication ( (Strattera 60 Mg)) 60 mg PO DAILY [facility] Last Admin: 07/10/24 08:41 Dose: 60 mg Risperidone (Risperidone 1 Mg Tablet) 1 mg PO BID PRN PRN Reason: psychosis, dissociation,agitation Last Admin: 07/08/24 12:33 Dose: 1 mg Risperidone (Risperidone 2 Mg Tablet) 2 mg PO BEDTIME [facility] Risperidone (Risperidone 1 Mg Tablet) 1 mg PO DAILY [facility] Trazodone HCl (Trazodone Hcl 50 Mg Tablet) 50 mg PO BEDTIME MRX1 PRN PRN Reason: Insomnia Allergies Allergies Allergy/AdvReac Type Severity Reaction Status Date / Time No Known Allergies Allergy Verified 07/01/24 19:47 Assessment & Plan Assessment & Plan (1) PTSD (post-traumatic stress disorder): Status: Acute Code(s): F43.10 - Post-traumatic stress disorder, unspecified Plan PTSD. Plan: Admit, CV, 15 minute checks Collateral Contacts Diagnostics as needed Medication eval Full milieu Discharge planning 07/05: Continue current regime 07/06: Continue current regime 07/08: Increase Risperdal to 2 mg bid 07/09 pt reports she is a little less anxious but feels AH remains and maybe even increased... she reports b/l hand tremors which are observable, which she says started when Risperdal was increased to 2mg BID. She asked if dose can be lessened... -going to groups -some paranoid thinking? -lowered risperdal to 1mg daily and 2mg qhs 07/10: labs in the a.m. family meeting 07/12 3pm olanzapine/haldol prn pt refusing risperdal Reason for continued inpatient stay Substantial Risk for: rapid decompensation Time Spent With Patient Time: Total time managing care of this patient today ____ minutes.
[2024-07-10 20:00] VITALS: BP 143/81; PULSE 105; RESP 18; TEMP 37.1; O2SAT 99
[2024-07-11 08:00] VITALS: BP 143/89; PULSE 120; RESP 18; TEMP 36.6; O2SAT 95
[2024-07-11] MEDS: lamoTRIgine 100 MG TABLET 200 MG PO ×2 (08:57→22:17)
[2024-07-11] MEDS: STRATTERA 60 MG 60 EACH PO (08:58)
[2024-07-11 10:22] LABS: MANUAL DIFF FLAG NO
[2024-07-11 10:36] LABS: Basophils Percent Auto 0.6 % (0-2); Eosinophils Absolute Auto 0.1 X10*3/uL (0.0-0.4); Eosinophils Percent Auto 1.1 % (0-4); Hemoglobin 13.8 g/dl (12.0-16.0); Imm Gran Abs Auto 0.01 X10*3/uL (0.00-0.03); Imm Gran Pct Auto 0.2 % (0.0-0.4); Lymphocytes Absolute Auto 1.6 X10*3/uL (1.2-4.9); Lymphocytes Percent Auto 25.5 % (20-40); Mean Corpuscular HGB Conc 34.5 g/dl (31.0-35.0); Mean Corpuscular Hemoglobin 29.8 pg (27.0-33.0); Mean Corpuscular Volume 86.4 fL (80.0-98.0); Mean Platelet Volume 10.2 fL (9.4-12.3); Monocytes Absolute Auto 0.5 X10*3/uL (0.1-1.2); Monocytes Percent Auto 7.8 % (2-11); Neutrophils Percent Auto 64.8 % (45-73); Platelet Count 260 X10*3/uL (160-400); Red Blood Count 4.63 X10*6/uL (4.20-5.50); Red Cell Distribution Width 11.9 % (11.0-16.0); White Blood Count 6.2 X10*3/uL (4.8-10.8)
[2024-07-11 10:59] LABS: Alanine Aminotransferase 27 U/L (0-31); Albumin Level 4.6 g/dL (3.5-5.0); Alkaline Phosphatase 48 U/L (39-117); Anion Gap 14 (12-20); Aspartate Amino Transferase 23 U/L (5-31); Bilirubin Total 0.4 mg/dL (0.0-1.0); Blood Urea Nitrogen 13 mg/dL (9-16); Calcium 10.3 mg/dL (8.4-10.2); Carbon Dioxide 26 mmol/L (22-29); Chloride 105 mmol/L (96-108); Creatinine Clr Calc Pharmacy 102.9; Estimated Glomerular Filt Rate > 60; Glucose Random 105 mg/dL (60-115); Potassium 3.9 mmol/L (3.3-5.1); Sodium 141 mmol/L (135-145); Total Protein 8.7 g/dL (6.5-8.0)
--- NOTE | 2024-07-11 11:39 | P.PNPSI_ITS ---
Subjective Subjective Date of Service: 07/11/24 Reason For Visit: Psychosis Subjective Notes: Conditional Voluntary Healthcare Proxy: No Guardianship: No Medical Problems Affecting Mental Status: No Interim History: Refusing meds labs completed, results wnl. pt given copies for review. Psychotic, baracaded her room with her mattress. Reports bruising, tingling in hands, believes we are out to harm her with medicine. Family meetng 07/12 3pm Medication Compliance: Intermittent Side effects from medications: Yes (tingling in hands, reports bruising however no bruising evident) Attending Groups: No Review of Systems Acute medical concerns: No Medical Review of Systems: unchanged Review of Systems Review of Systems hands tingling, bruising Mental Status Exam Mental Status Exam Patient Appearance: Fatigued and Appropriate Patient Orientation: Person, Place, Time and Situation Level of Consciousness: Alert Patient Behavior: Guarded and Talkative Mood Description: Anxious and Apprehensive Affect Description: Anxious and Apprehensive Patient Cognition Impaired: No Ability to Follow Directions: Fair Speech Pattern: Spontaneous Speech Memory Description: Episodic Impaired Hallucinations: Auditory and Visual Perceptual Disturbances: Depersonalization and Derealization Thought Process: Distracted, Rumination and Goal Oriented Thought Content: positive for Goal Oriented and positive for Suicidal Ideation Depressive Symptoms: Thoughts of /Suicide Judgement: Fair Diagnostics Vital Signs (24Hr): Vital Signs - 24 hr 07/10/24 20:00 07/11/24 08:00 Temperature 98.7 F 97.8 F Pulse Rate 105 H 120 H Respiratory Rate 18 18 Blood Pressure 143/81 H 143/89 H Pulse Oximetry 99 95 Oxygen Delivery Method Room Air Room Air BMI result Body Mass Index 27.9 Labs 07/11/24 09:50 07/11/24 09:50 Labs: Laboratory Results - last 48 hr 07/09/24 07/11/24 12:33 09:50 WBC 6.2 RBC 4.63 Hgb 13.8 Hct 40.0 MCV 86.4 MCH 29.8 MCHC 34.5 RDW 11.9 Plt Count 260 MPV 10.2 Immature Gran % (Auto) 0.2 Neut % (Auto) 64.8 Lymph % (Auto) 25.5 Keith % (Auto) 7.8 Eos % (Auto) 1.1 Baso % (Auto) 0.6 Lymph # (Auto) 1.6 Keith # (Auto) 0.5 Eos # (Auto) 0.1 Baso # (Auto) 0.0 Abs Immat Gran (auto) 0.01 Absolute Neuts (auto) 4.0 Absolute Nucleated RBC 0.000 Nucleated RBC % (auto) 0.0 Sodium 141 Potassium 3.9 Chloride 105 Carbon Dioxide 26 Anion Gap 14 BUN 13 Creatinine 0.90 Estim Creat Clear Calc 102.9 Estimated GFR > 60 POC Glucose 96 Random Glucose 105 Calcium 10.3 H Total Bilirubin 0.4 AST 23 ALT 27 Alkaline Phosphatase 48 Total Protein 8.7 H Albumin 4.6 Medications Medications Current Medications Acetaminophen (Acetaminophen 325 Mg Tablet) 650 mg PO Q6H PRN PRN Reason: Headache/Pain, Scale 1-10 Al Hydroxide/Mg Hydroxide (Magnesium Hydrox/Alum Hydrox 30 Ml Oral.Susp) 30 ml PO Q6H PRN PRN Reason: Heartburn/Nausea Buspirone HCl (Buspirone Hcl 5 Mg Tablet) 5 mg PO TID [facility] Last Admin: 07/11/24 09:43 Dose: Not Given Haloperidol (Haloperidol 5 Mg Tablet) 5 mg PO Q4H PRN PRN Reason: Psychosis Hydroxyzine HCl (Hydroxyzine Hcl 25 Mg Tablet) 25 mg PO Q6H PRN PRN Reason: mild anxiety Last Admin: 07/08/24 14:01 Dose: 25 mg Lamotrigine (Lamotrigine 100 Mg Tablet) 200 mg PO BID [facility] Last Admin: 07/11/24 08:57 Dose: 200 mg Magnesium Hydroxide (Milk Of Magnesia 30 Ml Oral.Susp) 30 ml PO DAILY PRN PRN Reason: Constipation Nicotine (Nicotine 21 Mg Patch.Td24) 21 mg TRANSDERMA DAILY PRN PRN Reason: smoking cessation Nicotine Polacrilex (Nicotine Polacrilex 2 Mg Gum) 4 mg BUCCAL Q2H PRN PRN Reason: Nicotine Cravings Pt Own Medication ( (Strattera 60 Mg)) 60 mg PO DAILY [facility] Last Admin: 07/11/24 08:58 Dose: 60 mg Olanzapine (Olanzapine Odt 10 Mg Tab.Rapdis) 10 mg TRANSLINGU BID PRN PRN Reason: agitation Risperidone (Risperidone 1 Mg Tablet) 1 mg PO BID PRN PRN Reason: psychosis, dissociation,agitation Last Admin: 07/08/24 12:33 Dose: 1 mg Risperidone (Risperidone 2 Mg Tablet) 2 mg PO BEDTIME [facility] Last Admin: 07/10/24 23:41 Dose: Not Given Risperidone (Risperidone 1 Mg Tablet) 1 mg PO DAILY [facility] Last Admin: 07/11/24 09:44 Dose: Not Given Trazodone HCl (Trazodone Hcl 50 Mg Tablet) 50 mg PO BEDTIME MRX1 PRN PRN Reason: Insomnia Allergies Allergies Allergy/AdvReac Type Severity Reaction Status Date / Time No Known Allergies Allergy Verified 07/01/24 19:47 Assessment & Plan Assessment & Plan (1) PTSD (post-traumatic stress disorder): Status: Acute Code(s): F43.10 - Post-traumatic stress disorder, unspecified Plan PTSD. Plan: Admit, CV, 15 minute checks Collateral Contacts Diagnostics as needed Medication eval Full milieu Discharge planning 07/05: Continue current regime 07/06: Continue current regime 07/08: Increase Risperdal to 2 mg bid 07/09 pt reports she is a little less anxious but feels AH remains and maybe even increased... she reports b/l hand tremors which are observable, which she says started when Risperdal was increased to 2mg BID. She asked if dose can be lessened... -going to groups -some paranoid thinking? -lowered risperdal to 1mg daily and 2mg qhs 07/11- prn haldol, olanzapine family meeting 07/12. Reason for continued inpatient stay Substantial Risk for: rapid decompensation Time Spent With Patient Time: Total time managing care of this patient today ____ minutes.
[2024-07-11] MEDS: busPIRone HCl 5 MG TABLET PO ×2 (13:08→22:19)
[2024-07-11 20:00] VITALS: BP 111/76; PULSE 126; TEMP 36.7; O2SAT 98
[2024-07-11] MEDS: risperiDONE 2 MG TABLET PO (22:21)
--- NOTE | 2024-07-12 13:59 | P.PNPSI_ITS ---
Subjective Subjective Date of Service: 07/12/24 Reason For Visit: Psychosis Subjective Notes: Conditional Voluntary Healthcare Proxy: No Guardianship: No Medical Problems Affecting Mental Status: No Interim History: Family meeting with partnerAngela and prescriber, Marilyn [phone]. Pt with several ruminative themes about medications, lack of trust, fear of being harmed with treatment. Worries as she is adopted and does not have a clear history of her health that we will harm her. Pt will trial Olanzapine 5 mg bid for the weekend. Medication Compliance: Intermittent Side effects from medications: No Attending Groups: No Review of Systems Acute medical concerns: No Medical Review of Systems: unchanged Review of Systems Review of Systems hand tremor is absent Mental Status Exam Mental Status Exam Patient Appearance: Fatigued and Appropriate Patient Orientation: Person, Place, Time and Situation Level of Consciousness: Alert Patient Behavior: Guarded and Talkative Mood Description: Anxious and Apprehensive Affect Description: Anxious and Apprehensive Patient Cognition Impaired: No Ability to Follow Directions: Fair Speech Pattern: Spontaneous Speech Memory Description: Episodic Impaired Hallucinations: Auditory and Visual Perceptual Disturbances: Depersonalization and Derealization Thought Process: Distracted, Rumination and Goal Oriented Thought Content: positive for Goal Oriented and positive for Suicidal Ideation Depressive Symptoms: Thoughts of /Suicide Judgement: Fair Diagnostics Vital Signs (24Hr): Vital Signs - 24 hr 07/11/24 20:00 Temperature 98.0 F Pulse Rate 126 H Blood Pressure 111/76 Pulse Oximetry 98 Oxygen Delivery Method Room Air BMI result Body Mass Index 27.9 Labs 07/11/24 09:50 07/11/24 09:50 Labs: Laboratory Results - last 48 hr 07/11/24 09:50 WBC 6.2 RBC 4.63 Hgb 13.8 Hct 40.0 MCV 86.4 MCH 29.8 MCHC 34.5 RDW 11.9 Plt Count 260 MPV 10.2 Immature Gran % (Auto) 0.2 Neut % (Auto) 64.8 Lymph % (Auto) 25.5 [place] % (Auto) 7.8 Eos % (Auto) 1.1 Baso % (Auto) 0.6 Lymph # (Auto) 1.6 [place] # (Auto) 0.5 Eos # (Auto) 0.1 Baso # (Auto) 0.0 Abs Immat Gran (auto) 0.01 Absolute Neuts (auto) 4.0 Absolute Nucleated RBC 0.000 Nucleated RBC % (auto) 0.0 Sodium 141 Potassium 3.9 Chloride 105 Carbon Dioxide 26 Anion Gap 14 BUN 13 Creatinine 0.90 Estim Creat Clear Calc 102.9 Estimated GFR > 60 Random Glucose 105 Calcium 10.3 H Total Bilirubin 0.4 AST 23 ALT 27 Alkaline Phosphatase 48 Total Protein 8.7 H Albumin 4.6 Medications Medications Current Medications Acetaminophen (Acetaminophen 325 Mg Tablet) 650 mg PO Q6H PRN PRN Reason: Headache/Pain, Scale 1-10 Al Hydroxide/Mg Hydroxide (Magnesium Hydrox/Alum Hydrox 30 Ml Oral.Susp) 30 ml PO Q6H PRN PRN Reason: Heartburn/Nausea Buspirone HCl (Buspirone Hcl 5 Mg Tablet) 5 mg PO TID [facility] Last Admin: 07/12/24 10:40 Dose: Not Given Haloperidol (Haloperidol 5 Mg Tablet) 5 mg PO Q4H PRN PRN Reason: Psychosis Hydroxyzine HCl (Hydroxyzine Hcl 25 Mg Tablet) 25 mg PO Q6H PRN PRN Reason: mild anxiety Last Admin: 07/08/24 14:01 Dose: 25 mg Lamotrigine (Lamotrigine 100 Mg Tablet) 200 mg PO BID [facility] Last Admin: 07/12/24 10:40 Dose: Not Given Magnesium Hydroxide (Milk Of Magnesia 30 Ml Oral.Susp) 30 ml PO DAILY PRN PRN Reason: Constipation Nicotine (Nicotine 21 Mg Patch.Td24) 21 mg TRANSDERMA DAILY PRN PRN Reason: smoking cessation Nicotine Polacrilex (Nicotine Polacrilex 2 Mg Gum) 4 mg BUCCAL Q2H PRN PRN Reason: Nicotine Cravings Pt Own Medication ( (Strattera 60 Mg)) 60 mg PO DAILY [facility] Last Admin: 07/12/24 10:40 Dose: Not Given Olanzapine (Olanzapine Odt 10 Mg Tab.Rapdis) 10 mg TRANSLINGU BID PRN PRN Reason: agitation Risperidone (Risperidone 1 Mg Tablet) 1 mg PO BID PRN PRN Reason: psychosis, dissociation,agitation Last Admin: 07/08/24 12:33 Dose: 1 mg Risperidone (Risperidone 2 Mg Tablet) 2 mg PO BEDTIME [facility] Last Admin: 07/11/24 22:21 Dose: 2 mg Risperidone (Risperidone 1 Mg Tablet) 1 mg PO DAILY [facility] Last Admin: 07/12/24 10:40 Dose: Not Given Trazodone HCl (Trazodone Hcl 50 Mg Tablet) 50 mg PO BEDTIME MRX1 PRN PRN Reason: Insomnia Allergies Allergies Allergy/AdvReac Type Severity Reaction Status Date / Time No Known Allergies Allergy Verified 07/01/24 19:47 Assessment & Plan Assessment & Plan (1) PTSD (post-traumatic stress disorder): Status: Acute Code(s): F43.10 - Post-traumatic stress disorder, unspecified Plan PTSD. Plan: Admit, CV, 15 minute checks Collateral Contacts Diagnostics as needed Medication eval Full milieu Discharge planning 07/05: Continue current regime 07/06: Continue current regime 07/08: Increase Risperdal to 2 mg bid 07/09 pt reports she is a little less anxious but feels AH remains and maybe even increased... she reports b/l hand tremors which are observable, which she says started when Risperdal was increased to 2mg BID. She asked if dose can be lessened... -going to groups -some paranoid thinking? -lowered risperdal to 1mg daily and 2mg qhs 07/12: DC Risperdal Olanzapine 5 mg bid Reason for continued inpatient stay Substantial Risk for: rapid decompensation Time Spent With Patient Time: Total time managing care of this patient today ____ minutes.
[2024-07-12] MEDS: OLANZapine ODT 10 MG TAB.RAPDIS TRANSLINGU (17:00)
[2024-07-12] MEDS: busPIRone HCl 5 MG TABLET PO (21:18)
[2024-07-12] MEDS: lamoTRIgine 100 MG TABLET 200 MG PO (21:18)
[2024-07-12] MEDS: OLANZapine 5 MG TABLET PO (21:18)
[2024-07-13 08:31] VITALS: BP 123/72; PULSE 115; RESP 18; TEMP 36.8; O2SAT 100
--- NOTE | 2024-07-13 10:34 | HO.PSYCHPN ---
Subjective Subjective Date of Service: 07/13/24 Reason For Visit: Psychosis Interim History: met with pt; discussed with team; reviewed chart yesterday, more confused, going into peers rooms pt says she's feeling a little better; says she no longer thinks that /child are in danger and says i saw them yesterday and they seemed fine... She acknowledged that she did think such thoughts days ago, but no longer. AH remains but not as intrusive and no longer saying family in danger. Talked about going into peers rooms; she says she was confused but knew it was not her room; says she's clear this is not allowed and will not enter others rooms again. Says no problems with Zyprexa so far Mental Status Exam Mental Status Exam Narrative: Pt is alert and oriented; behavior is cooperative, isolative but friendly on approach and calm; patient is not in distress; dressed in casual attire, adequate grooming; mood is described as ok and affect congruent,somewhat anxious; eye contact appropriate; Speech is a little soft; normal rate and prosody and not pressured; some psychomotor excitation present; thought process is more organized and goal directed; Thought content with some paranoid delusional thinking but less so; no SI/HI. AH present but less bother some; Patients insight and judgment impaired but somewhat improved Diagnostics Vital Signs (24Hr): Vital Signs - 24 hr 07/13/24 08:31 Temperature 98.2 F Pulse Rate 115 H Respiratory Rate 18 Blood Pressure 123/72 Pulse Oximetry 100 Oxygen Delivery Method Room Air BMI result Body Mass Index 27.9 Labs 07/11/24 09:50 07/11/24 09:50 Labs: Laboratory Results - last 48 hr 07/11/24 09:50 WBC 6.2 RBC 4.63 Hgb 13.8 Hct 40.0 MCV 86.4 MCH 29.8 MCHC 34.5 RDW 11.9 Plt Count 260 MPV 10.2 Immature Gran % (Auto) 0.2 Neut % (Auto) 64.8 Lymph % (Auto) 25.5 [place] % (Auto) 7.8 Eos % (Auto) 1.1 Baso % (Auto) 0.6 Lymph # (Auto) 1.6 [place] # (Auto) 0.5 Eos # (Auto) 0.1 Baso # (Auto) 0.0 Abs Immat Gran (auto) 0.01 Absolute Neuts (auto) 4.0 Absolute Nucleated RBC 0.000 Nucleated RBC % (auto) 0.0 Sodium 141 Potassium 3.9 Chloride 105 Carbon Dioxide 26 Anion Gap 14 BUN 13 Creatinine 0.90 Estim Creat Clear Calc 102.9 Estimated GFR > 60 Random Glucose 105 Calcium 10.3 H Total Bilirubin 0.4 AST 23 ALT 27 Alkaline Phosphatase 48 Total Protein 8.7 H Albumin 4.6 Medications Medications Current Medications Acetaminophen (Acetaminophen 325 Mg Tablet) 650 mg PO Q6H PRN PRN Reason: Headache/Pain, Scale 1-10 Al Hydroxide/Mg Hydroxide (Magnesium Hydrox/Alum Hydrox 30 Ml Oral.Susp) 30 ml PO Q6H PRN PRN Reason: Heartburn/Nausea Buspirone HCl (Buspirone Hcl 5 Mg Tablet) 5 mg PO TID [facility] Last Admin: 07/12/24 21:18 Dose: 5 mg Haloperidol (Haloperidol 5 Mg Tablet) 5 mg PO Q4H PRN PRN Reason: Psychosis Hydroxyzine HCl (Hydroxyzine Hcl 25 Mg Tablet) 25 mg PO Q6H PRN PRN Reason: mild anxiety Last Admin: 07/08/24 14:01 Dose: 25 mg Lamotrigine (Lamotrigine 100 Mg Tablet) 200 mg PO BID [facility] Last Admin: 07/12/24 21:18 Dose: 200 mg Magnesium Hydroxide (Milk Of Magnesia 30 Ml Oral.Susp) 30 ml PO DAILY PRN PRN Reason: Constipation Nicotine (Nicotine 21 Mg Patch.Td24) 21 mg TRANSDERMA DAILY PRN PRN Reason: smoking cessation Nicotine Polacrilex (Nicotine Polacrilex 2 Mg Gum) 4 mg BUCCAL Q2H PRN PRN Reason: Nicotine Cravings Pt Own Medication ( (Strattera 60 Mg)) 60 mg PO DAILY [facility] Last Admin: 07/12/24 10:40 Dose: Not Given Olanzapine (Olanzapine Odt 10 Mg Tab.Rapdis) 10 mg TRANSLINGU BID PRN PRN Reason: agitation Last Admin: 07/12/24 17:00 Dose: 10 mg Olanzapine (Olanzapine 5 Mg Tablet) 5 mg PO BID [facility] Last Admin: 07/12/24 21:18 Dose: 5 mg Trazodone HCl (Trazodone Hcl 50 Mg Tablet) 50 mg PO BEDTIME MRX1 PRN PRN Reason: Insomnia Allergies Allergies Allergy/AdvReac Type Severity Reaction Status Date / Time No Known Allergies Allergy Verified 07/01/24 19:47 Assessment & Plan Assessment & Plan (1) PTSD (post-traumatic stress disorder): Status: Acute Code(s): F43.10 - Post-traumatic stress disorder, unspecified Plan PTSD. Plan: Admit, CV, 15 minute checks Collateral Contacts Diagnostics as needed Medication eval Full milieu Discharge planning 07/05: Continue current regime 07/06: Continue current regime 07/08: Increase Risperdal to 2 mg bid 07/09 pt reports she is a little less anxious but feels AH remains and maybe even increased... she reports b/l hand tremors which are observable, which she says started when Risperdal was increased to 2mg BID. She asked if dose can be lessened... -going to groups -some paranoid thinking? -lowered risperdal to 1mg daily and 2mg qhs 07/12: DC Risperdal Olanzapine 5 mg bid 07/13 yesterday, more confused, going into peers rooms pt says she's feeling a little better; says she no longer thinks that /child are in danger and says i saw them yesterday and they seemed fine... She acknowledged that she did think such thoughts days ago, but no longer. AH remains but not as intrusive and no longer saying family in danger. Talked about going into peers rooms; she says she was confused but knew it was not her room; says she's clear this is not allowed and will not enter others rooms again. Says no problems with Zyprexa so far Patient educated on: diagnosis and medication risk/benefits Informed Consent: understands, does not understand and further education needed Reason for continued inpatient stay Substantial Risk for: inability to function Time Spent With Patient Time: Total time managing care of this patient today ____ minutes.
[2024-07-13] MEDS: lamoTRIgine 100 MG TABLET 200 MG PO (10:39)
[2024-07-13] MEDS: busPIRone HCl 5 MG TABLET PO ×2 (10:39→15:52)
[2024-07-13] MEDS: STRATTERA 60 MG 60 EACH PO (10:39)
[2024-07-13] MEDS: OLANZapine 5 MG TABLET PO (10:40)
[2024-07-13] MEDS: OLANZapine ODT 10 MG TAB.RAPDIS TRANSLINGU (16:34)
[2024-07-13 19:38] VITALS: BP 133/84; PULSE 106; RESP 16; TEMP 36.8; O2SAT 99
[2024-07-14] MEDS: OLANZapine ODT 10 MG TAB.RAPDIS TRANSLINGU ×2 (02:07→10:58)
[2024-07-14] MEDS: hydrOXYzine HCL 25 MG TABLET PO (02:30)
[2024-07-14 07:51] VITALS: BP 125/78; PULSE 108; RESP 18; TEMP 36.8; O2SAT 98
[2024-07-14] MEDS: OLANZapine 5 MG TABLET PO (08:32)
[2024-07-14] MEDS: busPIRone HCl 5 MG TABLET PO ×3 (08:32→21:00)
[2024-07-14] MEDS: lamoTRIgine 100 MG TABLET 200 MG PO ×2 (08:32→21:00)
[2024-07-14] MEDS: STRATTERA 60 MG 60 EACH PO (08:33)
--- NOTE | 2024-07-14 09:57 | HO.PSYCHPN ---
Subjective Subjective Date of Service: 07/14/24 Reason For Visit: Psychosis Interim History: Met with patient; discussed with team Paranoid thoughts seem to be dissipating. Patient has been taking several Zyprexa 10 mg doses of PRNs; discussed and patient agrees to increase scheduled Zyprexa to 10 mg b.i.d.. Patient still has AH but says it is a balance between thoughts and voices and seems more of a narration. Mental Status Exam Mental Status Exam Narrative: Pt is alert and oriented; behavior is cooperative, isolative but friendly on approach and calm; patient is not in distress; dressed in casual attire, adequate grooming; mood is described as ok and affect congruent, a little more calm; eye contact appropriate; Speech is a normal volume, normal rate and prosody and not pressured; no psychomotor excitation; thought process is more organized and goal directed, though still a little convoluted; Thought content with dissipating paranoid delusional; no SI/HI. AH present but less bother some; Patients insight and judgment impaired but seems to be improving Diagnostics Vital Signs (24Hr): Vital Signs - 24 hr 07/13/24 19:38 07/14/24 07:51 Temperature 98.3 F 98.3 F Pulse Rate 106 H 108 H Respiratory Rate 16 18 Blood Pressure 133/84 125/78 Pulse Oximetry 99 98 Oxygen Delivery Method Room Air Room Air BMI result Body Mass Index 27.9 Labs 07/11/24 09:50 07/11/24 09:50 Medications Medications Current Medications Acetaminophen (Acetaminophen 325 Mg Tablet) 650 mg PO Q6H PRN PRN Reason: Headache/Pain, Scale 1-10 Al Hydroxide/Mg Hydroxide (Magnesium Hydrox/Alum Hydrox 30 Ml Oral.Susp) 30 ml PO Q6H PRN PRN Reason: Heartburn/Nausea Buspirone HCl (Buspirone Hcl 5 Mg Tablet) 5 mg PO TID [facility] Last Admin: 07/14/24 08:32 Dose: 5 mg Hydroxyzine HCl (Hydroxyzine Hcl 25 Mg Tablet) 25 mg PO Q6H PRN PRN Reason: mild anxiety Last Admin: 07/14/24 02:30 Dose: 25 mg Lamotrigine (Lamotrigine 100 Mg Tablet) 200 mg PO BID [facility] Last Admin: 07/14/24 08:32 Dose: 200 mg Magnesium Hydroxide (Milk Of Magnesia 30 Ml Oral.Susp) 30 ml PO DAILY PRN PRN Reason: Constipation Nicotine (Nicotine 21 Mg Patch.Td24) 21 mg TRANSDERMA DAILY PRN PRN Reason: smoking cessation Nicotine Polacrilex (Nicotine Polacrilex 2 Mg Gum) 4 mg BUCCAL Q2H PRN PRN Reason: Nicotine Cravings Pt Own Medication ( (Strattera 60 Mg)) 60 mg PO DAILY [facility] Last Admin: 07/14/24 08:33 Dose: 60 mg Olanzapine (Olanzapine Odt 10 Mg Tab.Rapdis) 10 mg TRANSLINGU BID PRN PRN Reason: agitation/psychosis Last Admin: 07/14/24 02:07 Dose: 10 mg Olanzapine (Olanzapine 5 Mg Tablet) 5 mg PO BID [facility] Last Admin: 07/14/24 08:32 Dose: 5 mg Trazodone HCl (Trazodone Hcl 50 Mg Tablet) 50 mg PO BEDTIME MRX1 PRN PRN Reason: Insomnia Allergies Allergies Allergy/AdvReac Type Severity Reaction Status Date / Time No Known Allergies Allergy Verified 07/01/24 19:47 Assessment & Plan Assessment & Plan (1) Chronic schizophrenia: Status: Acute Code(s): F20.9 - Schizophrenia, unspecified (2) PTSD (post-traumatic stress disorder): Status: Acute Code(s): F43.10 - Post-traumatic stress disorder, unspecified Plan PTSD. Plan: Admit, CV, 15 minute checks Collateral Contacts Diagnostics as needed Medication eval Full milieu Discharge planning 07/05: Continue current regime 07/06: Continue current regime 07/08: Increase Risperdal to 2 mg bid 07/09 pt reports she is a little less anxious but feels AH remains and maybe even increased... she reports b/l hand tremors which are observable, which she says started when Risperdal was increased to 2mg BID. She asked if dose can be lessened... -going to groups -some paranoid thinking? -lowered risperdal to 1mg daily and 2mg qhs 07/12: DC Risperdal Olanzapine 5 mg bid 07/13 yesterday, more confused, going into peers rooms pt says she's feeling a little better; says she no longer thinks that /child are in danger and says i saw them yesterday and they seemed fine... She acknowledged that she did think such thoughts days ago, but no longer. AH remains but not as intrusive and no longer saying family in danger. Talked about going into peers rooms; she says she was confused but knew it was not her room; says she's clear this is not allowed and will not enter others rooms again. Says no problems with Zyprexa so far 07/14 Paranoid thoughts seem to be dissipating. Patient has been taking several Zyprexa 10 mg doses of PRNs; discussed and patient agrees to increase scheduled Zyprexa to 10 mg b.i.d.. Patient still has AH but says it is a balance between thoughts and voices and seems more of a narration. -Increase to Zyprexa 10 mg b.i.d. Patient educated on: diagnosis and medication risk/benefits Informed Consent: understands and further education needed Reason for continued inpatient stay Substantial Risk for: inability to function Time Spent With Patient Time: Total time managing care of this patient today ____ minutes.
[2024-07-14 19:49] VITALS: BP 133/81; PULSE 122; RESP 15; TEMP 36.4; O2SAT 99
[2024-07-14] MEDS: OLANZapine 10 MG TABLET PO (21:00)
[2024-07-15] MEDS: OLANZapine ODT 10 MG TAB.RAPDIS TRANSLINGU ×2 (04:35→14:45)
[2024-07-15 08:01] VITALS: RESP 18
[2024-07-15] MEDS: OLANZapine 10 MG TABLET PO (08:51)
[2024-07-15] MEDS: STRATTERA 60 MG 60 EACH PO (08:51)
[2024-07-15] MEDS: lamoTRIgine 100 MG TABLET 200 MG PO ×2 (08:51→20:40)
[2024-07-15] MEDS: busPIRone HCl 5 MG TABLET PO ×3 (08:51→20:42)
--- NOTE | 2024-07-15 10:37 | P.PNPSI_ITS ---
Subjective Subjective Date of Service: 07/15/24 Reason For Visit: Psychosis Subjective Notes: Conditional Voluntary Healthcare Proxy: No Guardianship: No Medical Problems Affecting Mental Status: No Interim History: Pt reports she if finding Olanzapine helpful and asks today to increase her dosing. She reports she is feeling improved grounding sx mgt and was clear, smiling and doing yoga when we met today. I think this is the medicine that will help me. Denies SI,HI, AH,VH. No evidence of response to internal stimuli today, increasingly alert and attentive Medication Compliance: Yes Side effects from medications: No Attending Groups: No Review of Systems Acute medical concerns: No Review of Systems Review of Systems Denies Mental Status Exam Mental Status Exam Patient Appearance: Appropriate Patient Orientation: Person, Place, Time and Situation Level of Consciousness: Alert Patient Behavior: Appropriate, Talkative, Cooperative and Good Eye Contact Mood Description: Anxious Affect Description: Anxious Patient Cognition Impaired: No Ability to Follow Directions: Good Speech Pattern: Spontaneous Speech Memory Description: Episodic Impaired Hallucinations: None Delusions: Not Present Thought Process: Intact and Distracted Thought Content: positive for Intact, positive for [place], positive for Circumstantial and positive for Suicidal Ideation (denies) Depressive Symptoms: Increased Anxiety Judgement: Fair Diagnostics Vital Signs (24Hr): Vital Signs - 24 hr 07/14/24 19:49 07/15/24 08:01 Temperature 97.5 F Pulse Rate 122 H Respiratory Rate 15 18 Blood Pressure 133/81 Pulse Oximetry 99 BMI result Body Mass Index 27.9 Labs 07/11/24 09:50 07/11/24 09:50 Medications Medications Current Medications Acetaminophen (Acetaminophen 325 Mg Tablet) 650 mg PO Q6H PRN PRN Reason: Headache/Pain, Scale 1-10 Al Hydroxide/Mg Hydroxide (Magnesium Hydrox/Alum Hydrox 30 Ml Oral.Susp) 30 ml PO Q6H PRN PRN Reason: Heartburn/Nausea Buspirone HCl (Buspirone Hcl 5 Mg Tablet) 5 mg PO TID [facility] Last Admin: 07/15/24 08:51 Dose: 5 mg Hydroxyzine HCl (Hydroxyzine Hcl 25 Mg Tablet) 25 mg PO Q6H PRN PRN Reason: mild anxiety Last Admin: 07/14/24 02:30 Dose: 25 mg Lamotrigine (Lamotrigine 100 Mg Tablet) 200 mg PO BID [facility] Last Admin: 07/15/24 08:51 Dose: 200 mg Magnesium Hydroxide (Milk Of Magnesia 30 Ml Oral.Susp) 30 ml PO DAILY PRN PRN Reason: Constipation Nicotine (Nicotine 21 Mg Patch.Td24) 21 mg TRANSDERMA DAILY PRN PRN Reason: smoking cessation Nicotine Polacrilex (Nicotine Polacrilex 2 Mg Gum) 4 mg BUCCAL Q2H PRN PRN Reason: Nicotine Cravings Pt Own Medication ( (Strattera 60 Mg)) 60 mg PO DAILY [facility] Last Admin: 07/15/24 08:51 Dose: 60 mg Olanzapine (Olanzapine Odt 10 Mg Tab.Rapdis) 10 mg TRANSLINGU BID PRN PRN Reason: agitation/psychosis Last Admin: 07/15/24 04:35 Dose: 10 mg Olanzapine (Olanzapine 10 Mg Tablet) 10 mg PO BID [facility] Last Admin: 07/15/24 08:51 Dose: 10 mg Trazodone HCl (Trazodone Hcl 50 Mg Tablet) 50 mg PO BEDTIME MRX1 PRN PRN Reason: Insomnia Allergies Allergies Allergy/AdvReac Type Severity Reaction Status Date / Time No Known Allergies Allergy Verified 07/01/24 19:47 Assessment & Plan Assessment & Plan (1) Chronic schizophrenia: Status: Acute Code(s): F20.9 - Schizophrenia, unspecified (2) PTSD (post-traumatic stress disorder): Status: Acute Code(s): F43.10 - Post-traumatic stress disorder, unspecified Plan PTSD. Plan: Admit, CV, 15 minute checks Collateral Contacts Diagnostics as needed Medication eval Full milieu Discharge planning 07/05: Continue current regime 07/06: Continue current regime 07/08: Increase Risperdal to 2 mg bid 07/09 pt reports she is a little less anxious but feels AH remains and maybe even increased... she reports b/l hand tremors which are observable, which she says started when Risperdal was increased to 2mg BID. She asked if dose can be lessened... -going to groups -some paranoid thinking? -lowered risperdal to 1mg daily and 2mg qhs 07/12: DC Risperdal Olanzapine 5 mg bid 07/13 yesterday, more confused, going into peers rooms pt says she's feeling a little better; says she no longer thinks that /child are in danger and says i saw them yesterday and they seemed fine... She acknowledged that she did think such thoughts days ago, but no longer. AH remains but not as intrusive and no longer saying family in danger. Talked about going into peers rooms; she says she was confused but knew it was not her room; says she's clear this is not allowed and will not enter others rooms again. Says no problems with Zyprexa so far 07/14 Paranoid thoughts seem to be dissipating. Patient has been taking several Zyprexa 10 mg doses of PRNs; discussed and patient agrees to increase scheduled Zyprexa to 10 mg b.i.d.. Patient still has AH but says it is a balance between thoughts and voices and seems more of a narration. -Increase to Zyprexa 10 mg b.i.d. 07/15 Increase Olanzapine to 15 mg bid Change prn Olanzapine to 5 mg bid prn Reason for continued inpatient stay Substantial Risk for: rapid decompensation Time Spent With Patient Time: Total time managing care of this patient today ____ minutes.
[2024-07-15] MEDS: hydrOXYzine HCL 25 MG TABLET PO (16:11)
[2024-07-15] MEDS: OLANZapine 7.5 MG TABLET 15 MG PO (20:41)
[2024-07-15] MEDS: OLANZapine 5 MG TABLET PO (22:05)
[2024-07-15 22:45] VITALS: BP 106/65; PULSE 121; TEMP 37.1; O2SAT 97
[2024-07-16] MEDS: hydrOXYzine HCL 25 MG TABLET PO ×3 (02:45→22:55)
[2024-07-16] MEDS: OLANZapine 5 MG TABLET PO ×3 (02:52→17:51)
[2024-07-16 08:00] VITALS: BP 124/78; PULSE 87; RESP 18; TEMP 36.5; O2SAT 98
[2024-07-16] MEDS: OLANZapine 7.5 MG TABLET 15 MG PO ×2 (09:16→20:54)
[2024-07-16] MEDS: STRATTERA 60 MG 60 EACH PO (09:16)
[2024-07-16] MEDS: busPIRone HCl 5 MG TABLET PO (09:17)
[2024-07-16] MEDS: lamoTRIgine 100 MG TABLET 200 MG PO ×2 (09:17→20:54)
--- NOTE | 2024-07-16 12:16 | P.PNPSI_ITS ---
Subjective Subjective Date of Service: 07/16/24 Reason For Visit: Psychosis Subjective Notes: Conditional Voluntary Healthcare Proxy: No Guardianship: No Medical Problems Affecting Mental Status: No Interim History: Buspirone increased to 10 mg tid Pt reports she is comfortable with Olanzapine and with increase to 15 mg bid and prn 5 bid. Today, she has appropriate eye contact, is interactive, does not appear to be responding to internal stimuli. She reports six hours of sleep. Medication Compliance: Yes Side effects from medications: No Attending Groups: Intermittent Review of Systems Acute medical concerns: No Medical Review of Systems: unchanged Review of Systems Review of Systems denies Mental Status Exam Mental Status Exam Patient Appearance: Appropriate Patient Orientation: Person, Place, Time and Situation Level of Consciousness: Alert Patient Behavior: Appropriate, Talkative, Cooperative and Good Eye Contact Mood Description: Anxious Affect Description: Anxious Patient Cognition Impaired: No Ability to Follow Directions: Good Speech Pattern: Spontaneous Speech Memory Description: Episodic Impaired Hallucinations: None Delusions: Not Present Thought Process: Intact and Distracted Thought Content: positive for Intact, positive for [place], positive for Circumstantial and positive for Suicidal Ideation (denies) Depressive Symptoms: Increased Anxiety Judgement: Fair Diagnostics Vital Signs (24Hr): Vital Signs - 24 hr 07/15/24 22:45 07/16/24 08:00 Temperature 98.7 F 97.7 F Pulse Rate 121 H 87 Respiratory Rate 18 Blood Pressure 106/65 124/78 Pulse Oximetry 97 98 Oxygen Delivery Method Room Air Room Air BMI result Body Mass Index 27.9 Labs 07/11/24 09:50 07/11/24 09:50 Medications Medications Current Medications Acetaminophen (Acetaminophen 325 Mg Tablet) 650 mg PO Q6H PRN PRN Reason: Headache/Pain, Scale 1-10 Al Hydroxide/Mg Hydroxide (Magnesium Hydrox/Alum Hydrox 30 Ml Oral.Susp) 30 ml PO Q6H PRN PRN Reason: Heartburn/Nausea Buspirone HCl (Buspirone Hcl 10 Mg Tablet) 10 mg PO TID [facility] Hydroxyzine HCl (Hydroxyzine Hcl 25 Mg Tablet) 25 mg PO Q6H PRN PRN Reason: mild anxiety Last Admin: 07/16/24 02:45 Dose: 25 mg Lamotrigine (Lamotrigine 100 Mg Tablet) 200 mg PO BID [facility] Last Admin: 07/16/24 09:17 Dose: 200 mg Magnesium Hydroxide (Milk Of Magnesia 30 Ml Oral.Susp) 30 ml PO DAILY PRN PRN Reason: Constipation Nicotine (Nicotine 21 Mg Patch.Td24) 21 mg TRANSDERMA DAILY PRN PRN Reason: smoking cessation Nicotine Polacrilex (Nicotine Polacrilex 2 Mg Gum) 4 mg BUCCAL Q2H PRN PRN Reason: Nicotine Cravings Pt Own Medication ( (Strattera 60 Mg)) 60 mg PO DAILY [facility] Last Admin: 07/16/24 09:16 Dose: 60 mg Olanzapine (Olanzapine 7.5 Mg Tablet) 15 mg PO BID [facility] Last Admin: 07/16/24 09:16 Dose: 15 mg Olanzapine (Olanzapine 5 Mg Tablet) 5 mg PO BID PRN PRN Reason: agitation,grounding sx, psychosis Last Admin: 07/16/24 02:52 Dose: 5 mg Trazodone HCl (Trazodone Hcl 50 Mg Tablet) 50 mg PO BEDTIME MRX1 PRN PRN Reason: Insomnia Allergies Allergies Allergy/AdvReac Type Severity Reaction Status Date / Time No Known Allergies Allergy Verified 07/01/24 19:47 Assessment & Plan Assessment & Plan (1) Chronic schizophrenia: Status: Acute Code(s): F20.9 - Schizophrenia, unspecified (2) PTSD (post-traumatic stress disorder): Status: Acute Code(s): F43.10 - Post-traumatic stress disorder, unspecified Plan PTSD. Plan: Admit, CV, 15 minute checks Collateral Contacts Diagnostics as needed Medication eval Full milieu Discharge planning 07/05: Continue current regime 07/06: Continue current regime 07/08: Increase Risperdal to 2 mg bid 07/09 pt reports she is a little less anxious but feels AH remains and maybe even increased... she reports b/l hand tremors which are observable, which she says started when Risperdal was increased to 2mg BID. She asked if dose can be lessened... -going to groups -some paranoid thinking? -lowered risperdal to 1mg daily and 2mg qhs 07/12: DC Risperdal Olanzapine 5 mg bid 07/13 yesterday, more confused, going into peers rooms pt says she's feeling a little better; says she no longer thinks that /child are in danger and says i saw them yesterday and they seemed fine... She acknowledged that she did think such thoughts days ago, but no longer. AH remains but not as intrusive and no longer saying family in danger. Talked about going into peers rooms; she says she was confused but knew it was not her room; says she's clear this is not allowed and will not enter others rooms again. Says no problems with Zyprexa so far 07/14 Paranoid thoughts seem to be dissipating. Patient has been taking several Zyprexa 10 mg doses of PRNs; discussed and patient agrees to increase scheduled Zyprexa to 10 mg b.i.d.. Patient still has AH but says it is a balance between thoughts and voices and seems more of a narration. -Increase to Zyprexa 10 mg b.i.d. 07/15 Increase Olanzapine to 15 mg bid Change prn Olanzapine to 5 mg bid prn 07/16 Increase Buspirone to 10 mg tid Reason for continued inpatient stay Substantial Risk for: rapid decompensation Time Spent With Patient Time: Total time managing care of this patient today ____ minutes.
[2024-07-16] MEDS: busPIRone HCl 10 MG TABLET PO ×2 (15:31→20:54)
[2024-07-16 19:59] VITALS: BP 117/79; PULSE 107; RESP 16; TEMP 36.6; O2SAT 99
[2024-07-17 08:00] VITALS: BP 157/79; PULSE 101; RESP 18; TEMP 36.9; O2SAT 98
[2024-07-17] MEDS: OLANZapine 7.5 MG TABLET 15 MG PO ×2 (08:11→21:31)
[2024-07-17] MEDS: STRATTERA 60 MG 60 EACH PO (08:11)
[2024-07-17] MEDS: lamoTRIgine 100 MG TABLET 200 MG PO ×2 (08:11→21:32)
[2024-07-17] MEDS: busPIRone HCl 10 MG TABLET PO ×3 (08:11→21:32)
--- NOTE | 2024-07-17 10:30 | P.PNPSI_ITS ---
Subjective Subjective Date of Service: 07/17/24 Reason For Visit: Psychosis Subjective Notes: Conditional Voluntary Healthcare Proxy: No Guardianship: No Medical Problems Affecting Mental Status: No Interim History: Seen in milieu, more engaged with reports of decreased sx. Family tells team they see improvement. Pt sleeping soundly this afternoon when tw attempted to meet with her ~3pm Team reports she is reporting some hand tremor Utilizing prn Olanzapine in addition to standing dosages. Medication Compliance: Yes Side effects from medications: No Attending Groups: Intermittent Review of Systems Acute medical concerns: No Review of Systems Review of Systems denies Mental Status Exam Mental Status Exam Patient Behavior: Asleep Diagnostics Vital Signs (24Hr): Vital Signs - 24 hr 07/16/24 19:59 07/17/24 08:00 Temperature 97.8 F 98.4 F Pulse Rate 107 H 101 H Respiratory Rate 16 18 Blood Pressure 117/79 157/79 H Pulse Oximetry 99 98 Oxygen Delivery Method Room Air Room Air BMI result Body Mass Index 27.9 Labs 07/11/24 09:50 07/11/24 09:50 Medications Medications Current Medications Acetaminophen (Acetaminophen 325 Mg Tablet) 650 mg PO Q6H PRN PRN Reason: Headache/Pain, Scale 1-10 Al Hydroxide/Mg Hydroxide (Magnesium Hydrox/Alum Hydrox 30 Ml Oral.Susp) 30 ml PO Q6H PRN PRN Reason: Heartburn/Nausea Buspirone HCl (Buspirone Hcl 10 Mg Tablet) 10 mg PO TID [facility] Last Admin: 07/17/24 08:11 Dose: 10 mg Hydroxyzine HCl (Hydroxyzine Hcl 25 Mg Tablet) 25 mg PO Q6H PRN PRN Reason: mild anxiety Last Admin: 07/16/24 22:55 Dose: 25 mg Lamotrigine (Lamotrigine 100 Mg Tablet) 200 mg PO BID [facility] Last Admin: 07/17/24 08:11 Dose: 200 mg Magnesium Hydroxide (Milk Of Magnesia 30 Ml Oral.Susp) 30 ml PO DAILY PRN PRN Reason: Constipation Nicotine (Nicotine 21 Mg Patch.Td24) 21 mg TRANSDERMA DAILY PRN PRN Reason: smoking cessation Nicotine Polacrilex (Nicotine Polacrilex 2 Mg Gum) 4 mg BUCCAL Q2H PRN PRN Reason: Nicotine Cravings Pt Own Medication ( (Strattera 60 Mg)) 60 mg PO DAILY [facility] Last Admin: 07/17/24 08:11 Dose: 60 mg Olanzapine (Olanzapine 7.5 Mg Tablet) 15 mg PO BID [facility] Last Admin: 07/17/24 08:11 Dose: 15 mg Olanzapine (Olanzapine 5 Mg Tablet) 5 mg PO BID PRN PRN Reason: agitation,grounding sx, psychosis Last Admin: 07/16/24 17:51 Dose: 5 mg Trazodone HCl (Trazodone Hcl 50 Mg Tablet) 50 mg PO BEDTIME MRX1 PRN PRN Reason: Insomnia Allergies Allergies Allergy/AdvReac Type Severity Reaction Status Date / Time No Known Allergies Allergy Verified 07/01/24 19:47 Assessment & Plan Assessment & Plan (1) Chronic schizophrenia: Status: Acute Code(s): F20.9 - Schizophrenia, unspecified (2) PTSD (post-traumatic stress disorder): Status: Acute Code(s): F43.10 - Post-traumatic stress disorder, unspecified Plan PTSD. Plan: Admit, CV, 15 minute checks Collateral Contacts Diagnostics as needed Medication eval Full milieu Discharge planning 07/05: Continue current regime 07/06: Continue current regime 07/08: Increase Risperdal to 2 mg bid 07/09 pt reports she is a little less anxious but feels AH remains and maybe even increased... she reports b/l hand tremors which are observable, which she says started when Risperdal was increased to 2mg BID. She asked if dose can be lessened... -going to groups -some paranoid thinking? -lowered risperdal to 1mg daily and 2mg qhs 07/12: DC Risperdal Olanzapine 5 mg bid 07/13 yesterday, more confused, going into peers rooms pt says she's feeling a little better; says she no longer thinks that /child are in danger and says i saw them yesterday and they seemed fine... She acknowledged that she did think such thoughts days ago, but no longer. AH remains but not as intrusive and no longer saying family in danger. Talked about going into peers rooms; she says she was confused but knew it was not her room; says she's clear this is not allowed and will not enter others rooms again. Says no problems with Zyprexa so far 07/14 Paranoid thoughts seem to be dissipating. Patient has been taking several Zyprexa 10 mg doses of PRNs; discussed and patient agrees to increase scheduled Zyprexa to 10 mg b.i.d.. Patient still has AH but says it is a balance between thoughts and voices and seems more of a narration. -Increase to Zyprexa 10 mg b.i.d. 07/15 Increase Olanzapine to 15 mg bid Change prn Olanzapine to 5 mg bid prn 07/17: Continue tx. Reason for continued inpatient stay Substantial Risk for: rapid decompensation Time Spent With Patient Time: Total time managing care of this patient today ____ minutes.
[2024-07-17 20:00] VITALS: BP 126/77; PULSE 115; RESP 18; TEMP 37.2; O2SAT 99
[2024-07-18 08:00] VITALS: BP 133/73; PULSE 94; RESP 16; TEMP 36.9; O2SAT 97
[2024-07-18] MEDS: busPIRone HCl 10 MG TABLET PO ×3 (08:46→20:57)
[2024-07-18] MEDS: OLANZapine 7.5 MG TABLET 15 MG PO ×2 (08:46→20:58)
[2024-07-18] MEDS: lamoTRIgine 100 MG TABLET 200 MG PO ×2 (08:46→20:58)
[2024-07-18] MEDS: STRATTERA 60 MG 60 EACH PO (08:47)
[2024-07-18] MEDS: OLANZapine 5 MG TABLET PO ×2 (11:35→22:24)
--- NOTE | 2024-07-18 14:28 | HO.PSYCHPN ---
Subjective Subjective Date of Service: 07/18/24 Reason For Visit: Psychosis Subjective Notes: Conditional Voluntary Healthcare Proxy: No Guardianship: No Medical Problems Affecting Mental Status: No Interim History: How do you think I am doing? I am sorry I gave everyone a hard time in the beginning, it is scarey to be admitted. Winifred is more engaged, active in the milieu. She reported to team a hand tremor earlier in the day, however there is no evidence of tremor when seen this afternoon. Today, we discussed discharge for 07/21 or 07/22. She reports feeling prepared to leave and excited to return to her family. Medication Compliance: Yes Side effects from medications: No Attending Groups: Yes Review of Systems Acute medical concerns: No Review of Systems Review of Systems Denies Mental Status Exam Mental Status Exam Patient Appearance: Appropriate Patient Orientation: Person, Place, Time and Situation Level of Consciousness: Alert Patient Behavior: Appropriate, Talkative, Cooperative and Good Eye Contact Mood Description: Anxious Affect Description: Anxious Patient Cognition Impaired: No Ability to Follow Directions: Good Speech Pattern: Spontaneous Speech Memory Description: Intact Hallucinations: None Delusions: Not Present Perceptual Disturbances: Depersonalization (at times) and Derealization (at times reported) Thought Process: Goal Oriented Thought Content: positive for [place] Depressive Symptoms: Thoughts of /Suicide (denies) Judgement: Good Diagnostics Vital Signs (24Hr): Vital Signs - 24 hr 07/17/24 20:00 07/18/24 08:00 Temperature 98.9 F 98.5 F Pulse Rate 115 H 94 Respiratory Rate 18 16 Blood Pressure 126/77 133/73 Pulse Oximetry 99 97 Oxygen Delivery Method Room Air BMI result Body Mass Index 27.9 Labs 07/11/24 09:50 07/11/24 09:50 Medications Medications Current Medications Acetaminophen (Acetaminophen 325 Mg Tablet) 650 mg PO Q6H PRN PRN Reason: Headache/Pain, Scale 1-10 Al Hydroxide/Mg Hydroxide (Magnesium Hydrox/Alum Hydrox 30 Ml Oral.Susp) 30 ml PO Q6H PRN PRN Reason: Heartburn/Nausea Buspirone HCl (Buspirone Hcl 10 Mg Tablet) 10 mg PO TID [facility] Last Admin: 07/18/24 08:46 Dose: 10 mg Hydroxyzine HCl (Hydroxyzine Hcl 25 Mg Tablet) 25 mg PO Q6H PRN PRN Reason: mild anxiety Last Admin: 07/16/24 22:55 Dose: 25 mg Lamotrigine (Lamotrigine 100 Mg Tablet) 200 mg PO BID [facility] Last Admin: 07/18/24 08:46 Dose: 200 mg Magnesium Hydroxide (Milk Of Magnesia 30 Ml Oral.Susp) 30 ml PO DAILY PRN PRN Reason: Constipation Nicotine (Nicotine 21 Mg Patch.Td24) 21 mg TRANSDERMA DAILY PRN PRN Reason: smoking cessation Nicotine Polacrilex (Nicotine Polacrilex 2 Mg Gum) 4 mg BUCCAL Q2H PRN PRN Reason: Nicotine Cravings Pt Own Medication ( (Strattera 60 Mg)) 60 mg PO DAILY [facility] Last Admin: 07/18/24 08:47 Dose: 60 mg Olanzapine (Olanzapine 7.5 Mg Tablet) 15 mg PO BID [facility] Last Admin: 07/18/24 08:46 Dose: 15 mg Olanzapine (Olanzapine 5 Mg Tablet) 5 mg PO BID PRN PRN Reason: agitation,grounding sx, psychosis Last Admin: 07/18/24 11:35 Dose: 5 mg Trazodone HCl (Trazodone Hcl 50 Mg Tablet) 50 mg PO BEDTIME MRX1 PRN PRN Reason: Insomnia Allergies Allergies Allergy/AdvReac Type Severity Reaction Status Date / Time No Known Allergies Allergy Verified 07/01/24 19:47 Assessment & Plan Assessment & Plan (1) Chronic schizophrenia: Status: Acute Code(s): F20.9 - Schizophrenia, unspecified (2) PTSD (post-traumatic stress disorder): Status: Acute Code(s): F43.10 - Post-traumatic stress disorder, unspecified Plan PTSD. Plan: Admit, CV, 15 minute checks Collateral Contacts Diagnostics as needed Medication eval Full milieu Discharge planning 07/05: Continue current regime 07/06: Continue current regime 07/08: Increase Risperdal to 2 mg bid 07/09 pt reports she is a little less anxious but feels AH remains and maybe even increased... she reports b/l hand tremors which are observable, which she says started when Risperdal was increased to 2mg BID. She asked if dose can be lessened... -going to groups -some paranoid thinking? -lowered risperdal to 1mg daily and 2mg qhs 07/12: DC Risperdal Olanzapine 5 mg bid 2/22 yesterday, more confused, going into peers rooms pt says she's feeling a little better; says she no longer thinks that /child are in danger and says i saw them yesterday and they seemed fine... She acknowledged that she did think such thoughts days ago, but no longer. AH remains but not as intrusive and no longer saying family in danger. Talked about going into peers rooms; she says she was confused but knew it was not her room; says she's clear this is not allowed and will not enter others rooms again. Says no problems with Zyprexa so far 07/14 Paranoid thoughts seem to be dissipating. Patient has been taking several Zyprexa 10 mg doses of PRNs; discussed and patient agrees to increase scheduled Zyprexa to 10 mg b.i.d.. Patient still has AH but says it is a balance between thoughts and voices and seems more of a narration. -Increase to Zyprexa 10 mg b.i.d. 07/15 Increase Olanzapine to 15 mg bid Change prn Olanzapine to 5 mg bid prn 07/17: Continue tx 07/18 Continue tx. Reason for continued inpatient stay Substantial Risk for: rapid decompensation Time Spent With Patient Time: Total time managing care of this patient today ____ minutes.
[2024-07-18] MEDS: hydrOXYzine HCL 25 MG TABLET PO ×2 (16:28→20:57)
[2024-07-18 20:00] VITALS: BP 122/76; PULSE 100; RESP 16; TEMP 37.1; O2SAT 100
[2024-07-19] MEDS: traZODone HCL 50 MG TABLET PO (02:16)
[2024-07-19 08:15] VITALS: BP 130/65; PULSE 97; RESP 16; TEMP 36.8; O2SAT 99
[2024-07-19] MEDS: STRATTERA 60 MG 60 EACH PO (09:41)
[2024-07-19] MEDS: busPIRone HCl 10 MG TABLET PO ×3 (09:42→20:24)
[2024-07-19] MEDS: OLANZapine 7.5 MG TABLET 15 MG PO ×2 (09:42→20:23)
[2024-07-19] MEDS: lamoTRIgine 100 MG TABLET 200 MG PO ×2 (09:42→20:23)
--- NOTE | 2024-07-19 11:15 | HO.PSYCHPN ---
Subjective Subjective Date of Service: 07/19/24 Reason For Visit: Psychosis Subjective Notes: Conditional Voluntary Healthcare Proxy: No Guardianship: No Medical Problems Affecting Mental Status: No Interim History: Discharge date confirmed for 07/22/24. Pt pleased and excited. Visable in milieu, with peers, connecting with the community via phone. States she feels well and is looking forward to returning to her family. Medication Compliance: Yes Side effects from medications: No Attending Groups: Yes Review of Systems Acute medical concerns: No Review of Systems Review of Systems Yes all other systems are reviewed and are negative Mental Status Exam Mental Status Exam Patient Appearance: Appropriate Patient Orientation: Person, Place, Time and Situation Level of Consciousness: Alert Patient Behavior: Appropriate, Talkative, Cooperative and Good Eye Contact Mood Description: Anxious Affect Description: Anxious Patient Cognition Impaired: No Ability to Follow Directions: Good Speech Pattern: Spontaneous Speech Memory Description: Intact Hallucinations: None Delusions: Not Present Perceptual Disturbances: Depersonalization (at times) and Derealization (at times reported) Thought Process: Goal Oriented Thought Content: positive for Goal Oriented Depressive Symptoms: Thoughts of /Suicide (denies) Judgement: Good Diagnostics Vital Signs (24Hr): Vital Signs - 24 hr 07/18/24 20:00 07/19/24 08:15 Temperature 98.7 F 98.2 F Pulse Rate 100 97 Respiratory Rate 16 16 Blood Pressure 122/76 130/65 Pulse Oximetry 100 99 Oxygen Delivery Method Room Air Room Air BMI result Body Mass Index 27.9 Labs 07/11/24 09:50 07/11/24 09:50 Medications Medications Current Medications Acetaminophen (Acetaminophen 325 Mg Tablet) 650 mg PO Q6H PRN PRN Reason: Headache/Pain, Scale 1-10 Al Hydroxide/Mg Hydroxide (Magnesium Hydrox/Alum Hydrox 30 Ml Oral.Susp) 30 ml PO Q6H PRN PRN Reason: Heartburn/Nausea Buspirone HCl (Buspirone Hcl 10 Mg Tablet) 10 mg PO TID [facility] Last Admin: 07/19/24 09:42 Dose: 10 mg Hydroxyzine HCl (Hydroxyzine Hcl 25 Mg Tablet) 25 mg PO Q6H PRN PRN Reason: mild anxiety Last Admin: 07/18/24 20:57 Dose: 25 mg Lamotrigine (Lamotrigine 100 Mg Tablet) 200 mg PO BID [facility] Last Admin: 07/19/24 09:42 Dose: 200 mg Magnesium Hydroxide (Milk Of Magnesia 30 Ml Oral.Susp) 30 ml PO DAILY PRN PRN Reason: Constipation Nicotine (Nicotine 21 Mg Patch.Td24) 21 mg TRANSDERMA DAILY PRN PRN Reason: smoking cessation Nicotine Polacrilex (Nicotine Polacrilex 2 Mg Gum) 4 mg BUCCAL Q2H PRN PRN Reason: Nicotine Cravings Pt Own Medication ( (Strattera 60 Mg)) 60 mg PO DAILY [facility] Last Admin: 07/19/24 09:41 Dose: 60 mg Olanzapine (Olanzapine 7.5 Mg Tablet) 15 mg PO BID [facility] Last Admin: 07/19/24 09:42 Dose: 15 mg Olanzapine (Olanzapine 5 Mg Tablet) 5 mg PO BID PRN PRN Reason: agitation,grounding sx, psychosis Last Admin: 07/18/24 22:24 Dose: 5 mg Trazodone HCl (Trazodone Hcl 50 Mg Tablet) 50 mg PO BEDTIME MRX1 PRN PRN Reason: Insomnia Last Admin: 07/19/24 02:16 Dose: 50 mg Allergies Allergies Allergy/AdvReac Type Severity Reaction Status Date / Time No Known Allergies Allergy Verified 07/01/24 19:47 Assessment & Plan Assessment & Plan (1) Chronic schizophrenia: Status: Acute Code(s): F20.9 - Schizophrenia, unspecified (2) PTSD (post-traumatic stress disorder): Status: Acute Code(s): F43.10 - Post-traumatic stress disorder, unspecified Plan PTSD. Plan: Admit, CV, 15 minute checks Collateral Contacts Diagnostics as needed Medication eval Full milieu Discharge planning 07/05: Continue current regime 07/06: Continue current regime 07/08: Increase Risperdal to 2 mg bid 07/09 pt reports she is a little less anxious but feels AH remains and maybe even increased... she reports b/l hand tremors which are observable, which she says started when Risperdal was increased to 2mg BID. She asked if dose can be lessened... -going to groups -some paranoid thinking? -lowered risperdal to 1mg daily and 2mg qhs 07/12: DC Risperdal Olanzapine 5 mg bid 07/13 yesterday, more confused, going into peers rooms pt says she's feeling a little better; says she no longer thinks that /child are in danger and says i saw them yesterday and they seemed fine... She acknowledged that she did think such thoughts days ago, but no longer. AH remains but not as intrusive and no longer saying family in danger. Talked about going into peers rooms; she says she was confused but knew it was not her room; says she's clear this is not allowed and will not enter others rooms again. Says no problems with Zyprexa so far 07/14 Paranoid thoughts seem to be dissipating. Patient has been taking several Zyprexa 10 mg doses of PRNs; discussed and patient agrees to increase scheduled Zyprexa to 10 mg b.i.d.. Patient still has AH but says it is a balance between thoughts and voices and seems more of a narration. -Increase to Zyprexa 10 mg b.i.d. 07/15 Increase Olanzapine to 15 mg bid Change prn Olanzapine to 5 mg bid prn 07/17: Continue tx. 07/19 Diagnostics for 07/21- CBCD, CMP, EKG Discharge 07/22/24. Reason for continued inpatient stay Substantial Risk for: rapid decompensation Time Spent With Patient Time: Total time managing care of this patient today ____ minutes.
[2024-07-19] MEDS: OLANZapine 5 MG TABLET PO ×2 (11:20→22:05)
[2024-07-19] MEDS: Loperamide HCl 2 MG CAPSULE 4 MG PO ×2 (17:18→22:04)
--- NOTE | 2024-07-19 19:16 | PC.NURSE ---
This insurance writer attempted to have EKG-routine, completed this shift. She was not able to get a hold of anyone in the cardiac department, in order to have someone come to complete this task. reported off to the next shift.
--- NOTE | 2024-07-19 19:24 | PC.NURSE ---
Pt reported diarrhea x5 days, 2x/day. Order for Loperamide obtained and provided to pt. Upon assessment of this medication, pt stated that she has had 1 incident since taking the med, however, she declined another dose at this time.
[2024-07-19 20:00] VITALS: BP 138/93; PULSE 118; RESP 15; TEMP 37.1; O2SAT 100
[2024-07-20] MEDS: hydrOXYzine HCL 25 MG TABLET PO ×2 (04:54→21:50)
[2024-07-20 08:00] VITALS: BP 117/59; PULSE 97; RESP 16; TEMP 36.4; O2SAT 99
[2024-07-20] MEDS: OLANZapine 7.5 MG TABLET 15 MG PO ×2 (08:51→20:19)
[2024-07-20] MEDS: busPIRone HCl 10 MG TABLET PO ×3 (08:51→20:19)
[2024-07-20] MEDS: lamoTRIgine 100 MG TABLET 200 MG PO ×2 (08:51→20:19)
[2024-07-20] MEDS: STRATTERA 60 MG 60 EACH PO (08:52)
[2024-07-20] MEDS: OLANZapine 5 MG TABLET PO (11:09)
--- NOTE | 2024-07-20 17:49 | P.PNPSI_ITS ---
Subjective Subjective Date of Service: 07/20/24 Reason For Visit: Psychosis Interim History: AH lessening. per staff, psychosis improving, more organized. Mental Status Exam Mental Status Exam Patient Appearance: Appropriate Patient Orientation: Person, Place, Time and Situation Level of Consciousness: Alert Patient Behavior: Appropriate, Talkative, Cooperative and Good Eye Contact Mood Description: Anxious Affect Description: Anxious Patient Cognition Impaired: No Ability to Follow Directions: Good Speech Pattern: Spontaneous Speech Memory Description: Intact Hallucinations: None Delusions: Not Present Perceptual Disturbances: Depersonalization (at times) and Derealization (at times reported) Thought Process: Goal Oriented Thought Content: positive for Goal Oriented Depressive Symptoms: Thoughts of /Suicide (denies) Judgement: Good Diagnostics Vital Signs (24Hr): Vital Signs - 24 hr 07/19/24 20:00 07/20/24 08:00 Temperature 98.7 F 97.6 F Pulse Rate 118 H 97 Respiratory Rate 15 16 Blood Pressure 138/93 H 117/59 L Pulse Oximetry 100 99 BMI result Body Mass Index 27.9 Labs 07/11/24 09:50 07/11/24 09:50 Medications Medications Current Medications Acetaminophen (Acetaminophen 325 Mg Tablet) 650 mg PO Q6H PRN PRN Reason: Headache/Pain, Scale 1-10 Al Hydroxide/Mg Hydroxide (Magnesium Hydrox/Alum Hydrox 30 Ml Oral.Susp) 30 ml PO Q6H PRN PRN Reason: Heartburn/Nausea Buspirone HCl (Buspirone Hcl 10 Mg Tablet) 10 mg PO TID [facility] Last Admin: 07/20/24 14:57 Dose: 10 mg Hydroxyzine HCl (Hydroxyzine Hcl 25 Mg Tablet) 25 mg PO Q6H PRN PRN Reason: mild anxiety Last Admin: 07/20/24 04:54 Dose: 25 mg Lamotrigine (Lamotrigine 100 Mg Tablet) 200 mg PO BID [facility] Last Admin: 07/20/24 08:51 Dose: 200 mg Loperamide HCl (Loperamide Hcl 2 Mg Capsule) 4 mg PO Q4H PRN PRN Reason: Diarrhea Last Admin: 07/19/24 22:04 Dose: 4 mg Magnesium Hydroxide (Milk Of Magnesia 30 Ml Oral.Susp) 30 ml PO DAILY PRN PRN Reason: Constipation Nicotine (Nicotine 21 Mg Patch.Td24) 21 mg TRANSDERMA DAILY PRN PRN Reason: smoking cessation Nicotine Polacrilex (Nicotine Polacrilex 2 Mg Gum) 4 mg BUCCAL Q2H PRN PRN Reason: Nicotine Cravings Pt Own Medication ( (Strattera 60 Mg)) 60 mg PO DAILY [facility] Last Admin: 07/20/24 08:52 Dose: 60 mg Olanzapine (Olanzapine 7.5 Mg Tablet) 15 mg PO BID [facility] Last Admin: 07/20/24 08:51 Dose: 15 mg Olanzapine (Olanzapine 5 Mg Tablet) 5 mg PO BID PRN PRN Reason: agitation,grounding sx, psychosis Last Admin: 07/20/24 11:09 Dose: 5 mg Trazodone HCl (Trazodone Hcl 50 Mg Tablet) 50 mg PO BEDTIME MRX1 PRN PRN Reason: Insomnia Last Admin: 07/19/24 02:16 Dose: 50 mg Allergies Allergies Allergy/AdvReac Type Severity Reaction Status Date / Time No Known Allergies Allergy Verified 07/01/24 19:47 Assessment & Plan Assessment & Plan (1) Chronic schizophrenia: Status: Acute Code(s): F20.9 - Schizophrenia, unspecified (2) PTSD (post-traumatic stress disorder): Status: Acute Code(s): F43.10 - Post-traumatic stress disorder, unspecified Plan PTSD. Plan: Admit, CV, 15 minute checks Collateral Contacts Diagnostics as needed Medication eval Full milieu Discharge planning 07/05: Continue current regime 07/06: Continue current regime 07/08: Increase Risperdal to 2 mg bid 07/09 pt reports she is a little less anxious but feels AH remains and maybe even increased... she reports b/l hand tremors which are observable, which she says started when Risperdal was increased to 2mg BID. She asked if dose can be lessened... -going to groups -some paranoid thinking? -lowered risperdal to 1mg daily and 2mg qhs 07/12: DC Risperdal Olanzapine 5 mg bid 07/13 yesterday, more confused, going into peers rooms pt says she's feeling a little better; says she no longer thinks that /child are in danger and says i saw them yesterday and they seemed fine... She acknowledged that she did think such thoughts days ago, but no longer. AH remains but not as intrusive and no longer saying family in danger. Talked about going into peers rooms; she says she was confused but knew it was not her room; says she's clear this is not allowed and will not enter others rooms again. Says no problems with Zyprexa so far 07/14 Paranoid thoughts seem to be dissipating. Patient has been taking several Zyprexa 10 mg doses of PRNs; discussed and patient agrees to increase scheduled Zyprexa to 10 mg b.i.d.. Patient still has AH but says it is a balance between thoughts and voices and seems more of a narration. -Increase to Zyprexa 10 mg b.i.d. 07/15 Increase Olanzapine to 15 mg bid Change prn Olanzapine to 5 mg bid prn 07/17: Continue tx. 07/19 Diagnostics for 07/21- CBCD, CMP, EKG Discharge 07/22/24. 07/20: improving psychosis. continue current mgmt. Reason for continued inpatient stay Substantial Risk for: inability to function and rapid decompensation Time Spent With Patient Time: Total time managing care of this patient today ____ minutes.
[2024-07-20 19:51] VITALS: BP 117/80; PULSE 106; RESP 15; TEMP 36.2; O2SAT 97
[2024-07-21] MEDS: traZODone HCL 50 MG TABLET PO (00:12)
[2024-07-21 08:00] VITALS: BP 150/70; PULSE 88; RESP 16; TEMP 37.4; O2SAT 98
[2024-07-21] MEDS: OLANZapine 7.5 MG TABLET 15 MG PO ×2 (08:20→20:48)
[2024-07-21] MEDS: STRATTERA 60 MG 60 EACH PO (08:20)
[2024-07-21] MEDS: lamoTRIgine 100 MG TABLET 200 MG PO ×2 (08:20→20:48)
[2024-07-21] MEDS: busPIRone HCl 10 MG TABLET PO ×3 (08:21→20:49)
[2024-07-21 09:20] LABS: Basophils Percent Auto 0.4 % (0-2); Eosinophils Absolute Auto 0.1 X10*3/uL (0.0-0.4); Eosinophils Percent Auto 1.2 % (0-4); Hematocrit 32.9 % (37.0-47.0); Hemoglobin 11.4 g/dl (12.0-16.0); Imm Gran Abs Auto 0.02 X10*3/uL (0.00-0.03); Imm Gran Pct Auto 0.4 % (0.0-0.4); Lymphocytes Absolute Auto 1.8 X10*3/uL (1.2-4.9); Lymphocytes Percent Auto 35.1 % (20-40); MANUAL DIFF FLAG SCAN; Mean Corpuscular HGB Conc 34.7 g/dl (31.0-35.0); Mean Corpuscular Hemoglobin 30.2 pg (27.0-33.0); Mean Platelet Volume 9.7 fL (9.4-12.3); Monocytes Absolute Auto 0.3 X10*3/uL (0.1-1.2); Monocytes Percent Auto 6.2 % (2-11); Neutrophils Absolute Auto 2.9 x10*3/uL (2.0-8.3); Neutrophils Percent Auto 56.7 % (45-73); Platelet Count 195 X10*3/uL (160-400); Red Blood Count 3.78 X10*6/uL (4.20-5.50); Red Cell Distribution Width 11.9 % (11.0-16.0); SCAN SMEAR FLAG 1; White Blood Count 5.2 X10*3/uL (4.8-10.8)
[2024-07-21 09:38] LABS: Alanine Aminotransferase 12 U/L (0-31); Albumin Level 3.9 g/dL (3.5-5.0); Alkaline Phosphatase 45 U/L (39-117); Anion Gap 13 (12-20); Aspartate Amino Transferase 16 U/L (5-31); Bilirubin Total 0.2 mg/dL (0.0-1.0); Blood Urea Nitrogen 11 mg/dL (9-16); Calcium 9.1 mg/dL (8.4-10.2); Carbon Dioxide 23 mmol/L (22-29); Chloride 109 mmol/L (96-108); Creatinine Clr Calc Pharmacy 108.9; Estimated Glomerular Filt Rate > 60; Glucose Random 96 mg/dL (60-115); Potassium 3.2 mmol/L (3.3-5.1); Sodium 142 mmol/L (135-145); Total Protein 7.1 g/dL (6.5-8.0)
[2024-07-21 10:04] LABS: SLIDE REVIEW VERIFIED
[2024-07-21] MEDS: OLANZapine 5 MG TABLET PO (14:32)
--- NOTE | 2024-07-21 15:37 | P.PNPSI_ITS ---
Subjective Subjective Date of Service: 07/21/24 Reason For Visit: Psychosis Interim History: wants to begin discussion on dispo. redirected to primary team on monday. reports 8 hours of sleep overnight, in 2 blocks with a 3 hour period of wakefulness in the middle. otherwise feeling well. per staff, brighter. allowed labs. new fine tremor in hands B/L. TH of feeling cold water poured down the back of her neck. planning for D/C tomorrow. Mental Status Exam Mental Status Exam Patient Appearance: Appropriate Patient Orientation: Person, Place, Time and Situation Level of Consciousness: Alert Patient Behavior: Appropriate, Talkative, Cooperative and Good Eye Contact Mood Description: Anxious Affect Description: Anxious Patient Cognition Impaired: No Ability to Follow Directions: Good Speech Pattern: Spontaneous Speech Memory Description: Intact Hallucinations: None Delusions: Not Present Perceptual Disturbances: Depersonalization (at times) and Derealization (at times reported) Thought Process: Goal Oriented Thought Content: positive for Goal Oriented Depressive Symptoms: Thoughts of /Suicide (denies) Judgement: Good Diagnostics Vital Signs (24Hr): Vital Signs - 24 hr 07/20/24 19:51 07/21/24 08:00 Temperature 97.2 F 99.3 F Pulse Rate 106 H 88 Respiratory Rate 15 16 Blood Pressure 117/80 150/70 H Pulse Oximetry 97 98 Oxygen Delivery Method Room Air BMI result Body Mass Index 27.9 Labs 07/21/24 09:12 07/21/24 09:12 Labs: Laboratory Results - last 48 hr 07/21/24 09:12 WBC 5.2 RBC 3.78 L Hgb 11.4 L Hct 32.9 L MCV 87.0 MCH 30.2 MCHC 34.7 RDW 11.9 Plt Count 195 MPV 9.7 Immature Gran % (Auto) 0.4 Neut % (Auto) 56.7 Lymph % (Auto) 35.1 [place] % (Auto) 6.2 Eos % (Auto) 1.2 Baso % (Auto) 0.4 Lymph # (Auto) 1.8 [place] # (Auto) 0.3 Eos # (Auto) 0.1 Baso # (Auto) 0.0 Abs Immat Gran (auto) 0.02 Absolute Neuts (auto) 2.9 Absolute Nucleated RBC 0.000 Nucleated RBC % (auto) 0.0 Smear Tech's Comments VERIFIED Sodium 142 Potassium 3.2 L Chloride 109 H Carbon Dioxide 23 Anion Gap 13 BUN 11 Creatinine 0.85 Estim Creat Clear Calc 108.9 Estimated GFR > 60 Random Glucose 96 Calcium 9.1 D Total Bilirubin 0.2 AST 16 ALT 12 Alkaline Phosphatase 45 Total Protein 7.1 Albumin 3.9 Medications Medications Current Medications Acetaminophen (Acetaminophen 325 Mg Tablet) 650 mg PO Q6H PRN PRN Reason: Headache/Pain, Scale 1-10 Al Hydroxide/Mg Hydroxide (Magnesium Hydrox/Alum Hydrox 30 Ml Oral.Susp) 30 ml PO Q6H PRN PRN Reason: Heartburn/Nausea Buspirone HCl (Buspirone Hcl 10 Mg Tablet) 10 mg PO TID [facility] Last Admin: 07/21/24 14:31 Dose: 10 mg Hydroxyzine HCl (Hydroxyzine Hcl 25 Mg Tablet) 25 mg PO Q6H PRN PRN Reason: mild anxiety Last Admin: 07/20/24 21:50 Dose: 25 mg Lamotrigine (Lamotrigine 100 Mg Tablet) 200 mg PO BID [facility] Last Admin: 07/21/24 08:20 Dose: 200 mg Loperamide HCl (Loperamide Hcl 2 Mg Capsule) 4 mg PO Q4H PRN PRN Reason: Diarrhea Last Admin: 07/19/24 22:04 Dose: 4 mg Magnesium Hydroxide (Milk Of Magnesia 30 Ml Oral.Susp) 30 ml PO DAILY PRN PRN Reason: Constipation Nicotine (Nicotine 21 Mg Patch.Td24) 21 mg TRANSDERMA DAILY PRN PRN Reason: smoking cessation Nicotine Polacrilex (Nicotine Polacrilex 2 Mg Gum) 4 mg BUCCAL Q2H PRN PRN Reason: Nicotine Cravings Pt Own Medication ( (Strattera 60 Mg)) 60 mg PO DAILY [facility] Last Admin: 07/21/24 08:20 Dose: 60 mg Olanzapine (Olanzapine 7.5 Mg Tablet) 15 mg PO BID [facility] Last Admin: 07/21/24 08:20 Dose: 15 mg Olanzapine (Olanzapine 5 Mg Tablet) 5 mg PO BID PRN PRN Reason: agitation,grounding sx, psychosis Last Admin: 07/21/24 14:32 Dose: 5 mg Trazodone HCl (Trazodone Hcl 50 Mg Tablet) 50 mg PO BEDTIME MRX1 PRN PRN Reason: Insomnia Last Admin: 07/21/24 00:12 Dose: 50 mg Allergies Allergies Allergy/AdvReac Type Severity Reaction Status Date / Time No Known Allergies Allergy Verified 07/01/24 19:47 Assessment & Plan Assessment & Plan (1) Chronic schizophrenia: Status: Acute Code(s): F20.9 - Schizophrenia, unspecified (2) PTSD (post-traumatic stress disorder): Status: Acute Code(s): F43.10 - Post-traumatic stress disorder, unspecified Plan PTSD. Plan: Admit, CV, 15 minute checks Collateral Contacts Diagnostics as needed Medication eval Full milieu Discharge planning 07/05: Continue current regime 07/06: Continue current regime 07/08: Increase Risperdal to 2 mg bid 07/09 pt reports she is a little less anxious but feels AH remains and maybe even increased... she reports b/l hand tremors which are observable, which she says started when Risperdal was increased to 2mg BID. She asked if dose can be lessened... -going to groups -some paranoid thinking? -lowered risperdal to 1mg daily and 2mg qhs 07/12: DC Risperdal Olanzapine 5 mg bid 07/13 yesterday, more confused, going into peers rooms pt says she's feeling a little better; says she no longer thinks that /child are in danger and says i saw them yesterday and they seemed fine... She acknowledged that she did think such thoughts days ago, but no longer. AH remains but not as intrusive and no longer saying family in danger. Talked about going into peers rooms; she says she was confused but knew it was not her room; says she's clear this is not allowed and will not enter others rooms again. Says no problems with Zyprexa so far 07/14 Paranoid thoughts seem to be dissipating. Patient has been taking several Zyprexa 10 mg doses of PRNs; discussed and patient agrees to increase scheduled Zyprexa to 10 mg b.i.d.. Patient still has AH but says it is a balance between thoughts and voices and seems more of a narration. -Increase to Zyprexa 10 mg b.i.d. 07/15 Increase Olanzapine to 15 mg bid Change prn Olanzapine to 5 mg bid prn 07/17: Continue tx. 07/19 Diagnostics for 07/21- CBCD, CMP, EKG Discharge 07/22/24. 07/20: improving psychosis. continue current mgmt. 07/21: pt reported TH yesterday. asking about discharge. improving psychosis. discharge tomorrow. Reason for continued inpatient stay Substantial Risk for: inability to function Time Spent With Patient Time: Total time managing care of this patient today ____ minutes.
--- NOTE | 2024-07-21 17:30 | PC.NURSE ---
This nurse told Winifred that she has an EKG, she initially wanted to think about it, then agreed to it. This nurse [place] [facility] [place] come [place] to do it at 1330. Our staff who could do it is a male and she refused and only wants a female to do it. [facility] [place] again to attempt to get a female staff as of now no one has been available.
[2024-07-21 20:00] VITALS: BP 122/79; PULSE 115; RESP 15; TEMP 36.6; O2SAT 98
--- NOTE | 2024-07-22 | ECG_ITS ---
Test Reason : rule out QTc prolongation. No done on 07/21. Blood Pressure : */* mmHG Vent. Rate : 97 BPM Atrial Rate : 97 BPM P-R Int : 158 ms QRS Dur : 96 ms QT Int : 360 ms P-R-T Axes : 64 57 47 degrees QTcB Int : 457 ms Normal sinus rhythm Possible Left atrial enlargement Borderline ECG When compared with ECG of 02-Jul-2024 10:55, No significant change was found Referred By: Martha Umaña Electronically Signed By: KALEN SOFIA MD
[2024-07-22] MEDS: hydrOXYzine HCL 25 MG TABLET PO (03:32)
[2024-07-22 08:50] VITALS: BP 143/75; PULSE 106; RESP 16; TEMP 36.9; O2SAT 98
[2024-07-22] MEDS: STRATTERA 60 MG 60 EACH PO (09:07)
[2024-07-22] MEDS: busPIRone HCl 10 MG TABLET PO (09:08)
[2024-07-22] MEDS: OLANZapine 7.5 MG TABLET 15 MG PO (09:08)
[2024-07-22] MEDS: lamoTRIgine 100 MG TABLET 200 MG PO (09:08)
--- NOTE | 2024-07-22 09:40 | PM.PSYDC ---
DS: Providers Provider Date of admission: 07/02/24 14:52 Primary care physician: None Physician DS: Diagnosis Discharge Diagnosis (1) Chronic schizophrenia: Status: Acute (2) PTSD (post-traumatic stress disorder): Status: Acute DS: Medications Discharge Medications Home Medications: Home Medications ?Medication ?Instructions ?Recorded ?Confirmed buspirone 5 mg tablet 5 mg PO TID 07/01/24 07/01/24 lamotrigine 200 mg tablet 200 mg PO BID 07/01/24 07/01/24 atomoxetine 60 mg capsule 60 mg PO BEDTIME 07/02/24 07/02/24 Data Data Completed and Pending Completed studies during hospitalization [Text1]: 07/21/24 09:12 WBC 5.2 RBC 3.78 L Hgb 11.4 L Hct 32.9 L MCV 87.0 MCH 30.2 MCHC 34.7 RDW 11.9 Plt Count 195 MPV 9.7 Immature Gran % (Auto) 0.4 Neut % (Auto) 56.7 Lymph % (Auto) 35.1 [place] % (Auto) 6.2 Eos % (Auto) 1.2 Baso % (Auto) 0.4 Lymph # (Auto) 1.8 [place] # (Auto) 0.3 Eos # (Auto) 0.1 Baso # (Auto) 0.0 Abs Immat Gran (auto) 0.02 Absolute Neuts (auto) 2.9 Absolute Nucleated RBC 0.000 Nucleated RBC % (auto) 0.0 Smear Tech's Comments VERIFIED Sodium 142 Potassium 3.2 L Chloride 109 H Carbon Dioxide 23 Anion Gap 13 BUN 11 Creatinine 0.85 Estim Creat Clear Calc 108.9 Estimated GFR > 60 Random Glucose 96 Calcium 9.1 D Total Bilirubin 0.2 AST 16 ALT 12 Alkaline Phosphatase 45 Total Protein 7.1 Albumin 3.9 DS: Summary Time Spent with Patient Time attestation: Total time managing care of this patient today ____ minutes. Discharge Plan Discharge Referrals: Physician,None [Primary Care Provider] - 1 Week Discharge Medications: No Action buspirone 5 mg tablet 5 mg PO TID lamotrigine 200 mg tablet 200 mg PO BID atomoxetine 60 mg capsule 60 mg PO BEDTIME Print Language: Albanian
== END 2024-07-22 11:00 | disposition home or self-care (01) | DRG 885 ==
LOC: HO.ED 07-02 07:03 → HO.PM5 07-02 16:47
PROVIDERS: Clinical Nurse Specialist Psychiatric/Mental Health, Adult; Internal Medicine; Physician Assistant; Admitting Provider Psychiatry & Neurology Psychiatry; Emergency Provider Emergency Medicine Emergency Medical Services; Visit Provider Psychiatry & Neurology Psychiatry
DX: F20.9 Schizophrenia, unspecified (principal); F43.10 Post-traumatic stress disorder, unspecified; Z78.1 Physical restraint status; Z79.899 Other long term (current) drug therapy
CPT/HCPCS: 36415; 80053; 80061; 80143; 80179; 80307; 81003; 81025; 82947; 83036; 84443; 85025; 93005; 99285; J1200; J1630; J2060; S9485

== ENCOUNTER → 2024-07-02 10:55 | Outpatient (BNV) | payer MEDICAID, SELFPAY | PROVIDERS: Emergency Provider Internal Medicine; Visit Provider Internal Medicine Cardiovascular Disease | DX: I45.81 Long QT syndrome (principal) | CPT/HCPCS: 93010 ==

== ENCOUNTER 2024-07-02 14:52 | Outpatient (BNV) | payer MEDICAID, SELFPAY | END 2024-07-22 10:12 | PROVIDERS: Admitting Provider Psychiatry & Neurology Psychiatry; Emergency Provider Emergency Medicine Emergency Medical Services; Visit Provider Internal Medicine Cardiovascular Disease | DX: Z13.6 Encounter for screening for cardiovascular disorders (principal) | CPT/HCPCS: 93010 ==

== ENCOUNTER → 2024-07-02 14:52 | Outpatient (BNV) | payer OTHER, SELFPAY | PROVIDERS: Admitting Provider Psychiatry & Neurology Psychiatry; Emergency Provider Emergency Medicine Emergency Medical Services; Visit Provider Psychiatry & Neurology Psychiatry | DX: F43.11 Post-traumatic stress disorder, acute (principal) | CPT/HCPCS: 99238 ==

== ENCOUNTER → 2024-07-02 14:52 | Outpatient (BNV) | payer OTHER, SELFPAY | PROVIDERS: Admitting Provider Psychiatry & Neurology Psychiatry; Emergency Provider Emergency Medicine Emergency Medical Services; Visit Provider Clinical Nurse Specialist Psychiatric/Mental Health, Adult | DX: F43.10 Post-traumatic stress disorder, unspecified (principal) | CPT/HCPCS: 90792 ==

== ENCOUNTER 2024-12-04 12:03 | Outpatient (RCR) | payer MEDICAID, SELFPAY | END 2024-12-04 13:55 | disposition home or self-care (01) | LOC: HO.PHPA 12:03 | PROVIDERS: Visit Provider Psychiatry & Neurology Psychiatry | DX: F32.A Depression, unspecified (principal) ==

== ENCOUNTER → 2025-01-15 18:54 | Outpatient (BNV) | payer MEDICAID, SELFPAY | PROVIDERS: Visit Provider Radiology Diagnostic Radiology | DX: R41.3 Other amnesia (principal) | CPT/HCPCS: 70551 ==

== ENCOUNTER 2025-01-15 19:51 | Outpatient (REF) | payer MEDICAID, SELFPAY ==
--- NOTE | ~2025-01-15 | MR_ITS ---
EXAMINATION: MR BRAIN WITHOUT CONTRAST CLINICAL INFORMATION: Short-term memory, worsening. COMPARISON: None available. TECHNIQUE: MRI of the brain was obtained using routine sequences without contrast. FINDINGS: No restricted diffusion. No acute intracranial hemorrhage, mass effect, midline shift, hydrocephalus or herniation. Ballesteros-white matter differentiation is normal. Posterior cranial fossa contents demonstrated no signal abnormality or mass effect. There is a 4 mm descensus of the cerebellar tonsils below foramen magnum. Sellar/suprasellar region demonstrated no signal abnormality or mass effect. Suprasellar cistern measures 3 mm in maximum dimension. The prepontine cistern measures 3.5 mm in maximum dimension. Prominent Virchow-Shola spaces in the centrum semiovale and johnson radiata. No signal abnormality or volume loss in the hippocampi. Prominent cervical lymph nodes. MR/MR head/brain wo con IMPRESSION: Low-lying cerebellar tonsils. Alexey score 3, intermediate probability for spontaneous intracranial hypotension. Electronically signed by: Angel Leiva MD 01/16/2025 07:16 AM EDT
--- OUTSIDE RECORDS SUMMARY | 2025-01-15 19:55 | XMS_ITS | Clinical Summary ---
Author Organization [facility] Address [address] [place] [address] Phone Care Team Providers Care Control Cabinet Assembler Name Role Phone Han Nazia Gayle DE LEON Primary Care Provider Allergies No known active allergies Medications vitamins-DHA (DUET DHA ) 29 mg iron-1 mg -430 mg Cmpk Take 1 packet by mouth daily. Active acetaminophen (TYLENOL) 325 mg tablet Take 2 tablets (650 mg total) by mouth every 6 (six) hours as needed for mild pain. 50 tablet 08/18/2020 Active cetirizine HCl (ZYRTEC ORAL) Take by mouth. Active BIOTIN ORAL Take by mouth. Active Active Problems Problem Noted Date Diagnosed Date Normal intrauterine , antepartum 2020 Encounter for induction of labor 08/13/2020 Overview (08/14/2020): Postdates IOL at 41w1d 08/13/20 20:30 SVE 70/-2, vertex by sutures. Elijah regularly, opted for expectant mgmt 08/14/20 01:00 SVE 70/-2, Cook cervical ripening balloon placed 06:10 balloon out 07:00 SVE /-3 Assessment & Plan (08/14/2020 11:43 AM EDT): We discussed that Pitocin is a synthetic version of oxytocin, a natural hormone that causes uterine contractions. It is intended to increase the strength or number of contractions. We discussed that this medication is given intravenously, starting at a low-dose and increasing at a regular interval until contractions are every 2 to 3 minutes. We discussed that this medication is generally considered safe and is commonly used in labor and delivery, but does carry a risk of tachysystole (too frequent or prolonged contractions). In some cases, this may temporarily affect oxygen delivery to the fetus and cause changes to the heart rate pattern. We discussed the importance of continuously monitoring heart rate pattern and contraction activity when Pitocin to maintain safety. We reviewed that any periods of tachysystole or concerning heart rate patterns would lead the RN or provider to discontinue the Pitocin and begin measures to increase oxygen delivery to the fetus, including maternal position changes, administering oxygen via mask, or giving fluids through the IV. The patient understands the risks and benefits of this therapy and opts to proceed with the plan for Pitocin augmentation. -Due to the acuity of the floor, we will not start Pitocin right away. Pt is going to get up and have breakfast and take a shower. We will reassess in 2 hours or sooner. Assessment & Plan (08/14/2020 7:12 AM EDT): A: 30 y.o. at 41w1d for postdates IOL GBS neg Covid neg Cervix ripe P: - Discussed plan to proceed with Pitocin IOL today - Will need IV access, plan to place after breakfast - Defer plan and counseling to oncoming team Anxiety 12/04/2019 Overview (12/04/2019): Has used fluoxetine with good effect. She stopped this when she found out that she was . Recommended staying off until T2 if she feels stable, but can restart earlier prn. Discussed association with irritability/seizures with T3 use but contrasted to risk of untreated depression or anxiety. Encounter for supervision of normal first in third trimester 12/04/2019 Overview (07/24/2020): CNM No OB-CMI score has been filled out for this encounter. Rh A+ GC/Chlam- not indicated PAP Normal December 2018 Tdap 06/15/20 Flu 03/19 Hgb 12.1 GTT 146 - 3 hour GTT normal 28 wk Repeat RPR neg GBS neg PPBC - not needed screening NT normal Conceived via home IUI with known donor. Assessment & Plan (08/05/2020 10:47 AM EDT): Rosa is doing well. Experiencing normal 3rd trimester discomforts - strategies reviewed. Feeling some nervousness about labor/ - has been doing prep/research, well-supported by partner. SVE per pt request: 3, could not sweep membranes. Discussed r/b of 41st week and range of postdates plans; Rosa would like a BPP and appt at 41+0; will let us know if would like IOL instead. +FM. Denies LOF, VB, UCs. Reviewed FM, PEC, and labor precautions. NV and BPP in one week. Assessment & Plan (07/31/2020 4:01 PM EST): Rosa is feeling great. Ready for labor and excited to meet baby Tomás. No complaints. Denies vb, lof, ctxs, dfm. Has all preps for baby. Ending work soon. Assessment & Plan (07/24/2020 4:04 PM EST): TAM at 38 2/7 weeks. Rosa is feeling well. Active baby. Has had some mild tightening. Hoping for natural . Her will be with her in labor. Discussed positions such as knee-chest prenatally to help with positioning and alignment. Discussed plan for covid test on admission, coping options such as hydrotherapy, nitrous oxide. GBS negative, reviewed. TAM in one week. Assessment & Plan (07/17/2020 3:33 PM EST): Rosa feeling well, is waking up at night sometimes with heartburn. Also experiencing lower back pain especially at the end of the day. Works a job where she is sitting quite often. Otherwise doing okay, a little nervous for labor and the process but feels ready to meet baby Tomás. Reviewed comfort measures for heartburn. D/t night waking recommended Pepcid to take with dinner. Prescription sent to pharmacy. Reviewed comfort measures for lower back pain including using heat packs and taking warm showers/baths. FHT were audible but muffled, suggesting back against maternal back. Recommended spinning babies and improving posture to help encourage baby to twist around. Follow up in 1 week for in person visit d/t no BP cuff. Dorothy PHILLIPS Assessment & Plan (07/13/2020 4:56 PM EST): A virtual visit was used during the COVID-[address] of an in-person visit. This real-time interactive virtual clinical encounter was conducted using telephone-only technology from clinic or home office. The patient participated in the visit from home/temporary residence or other location as specified below. Consent for virtual care, including informing the patient that insurance will be billed, and that in-person care is available in case of emergencies or as needed otherwise, was discussed at the time of scheduling. Rosa is doing well today. She is feeling abundant movement. Having some normal third trimester discomforts. We discussed considering modifying/cutting back on her work hours as she progresses in the third trimester to allow for more time to rest. We also continued conversation about hopes- she is very flexible and open to all different coping techniques. Rosa will have office visit with GBS in two week. Assessment & Plan (06/15/2020 4:26 PM EST): Rosa is feeling well, excited to meet baby Tomás! Desires to use hydrotherapy in labor for pain relief. Information given about childbirth education and creating a wishes sheet--Rosa will research and come back for next visit with ideas about her . Informed of virtual visit schedule and will picking machine operator helper a blood pressure cuff before next visit. Endorses good FM, denies LOF, VB, ctxns. F/U in 2 weeks for telehealth visit. Dorothy PHILLIPS Assessment & Plan (04/24/2020 12:37 PM EST): Rosa is doing well today. Follow up spine views on ultrasound today were normal. She is having some tingling in hands sometimes. Reviewed carpal tunnel in . She had heard about someone who had preeclampsia. She is wondering what that is. We reviewed preeclampsia, how we screen for it and what the signs and symptoms are. Reviewed labs including GTT at next visit. Assessment & Plan (03/25/2020 6:37 PM EST): Rosa is doing well today- just had anatomy scan, will schedule f/u for limited spine views, otherwise wnl. They have been in touch with Ayde Sebastian and plan to reach out again to discuss childbirth ed and edge stitcher offerings. Will return in ~4wks for repeat ultrasound and visit. Assessment & Plan (01/21/2020 11:03 PM EDT): Rosa is feeling well. NT today. Happy to see baby. Would like to continue care with CNM. Normal physical exam today. Pelvic declined. NILM pap in 2019. Anatomy scan ordered and scheduled. Reviewed weekly support group. Resolved Problems Problem Noted Date Diagnosed Date Resolved Date Elevated glucose tolerance test 05/25/2020 07/13/2020 Overview (06/15/2020): 146; the 3 hour GTT normal Immunizations Immunization Administration Dates Next Due Hepatitis A, Adult 12/14/2015 Influenza Quadrivalent Preservative Free IM 02/20 MMR 08/18/2020 Tdap 06/15/2020 Typhoid, ViCPs 12/14/2015 Social History Tobacco Use Types Packs/Day Years Used Date Smoking Tobacco: Never Smokeless Tobacco: Never Alcohol Use Standard Drinks/Week Comments Not Currently 0 (1 standard drink = 0.6 oz pur e alcohol) prior hx, not current Education Answer Date Recorded Are you interested in more education? Not on froylan e 09/16/2022 Are you concerned about learning? Not on file 09/16/2022 No 09/16/2022 No 09/16/2022 Digital Access Answer Date Recorded No 10/17/2022 No 10/17/2022 No 10/17/2022 Reliable internet access at home? Not on file 10/17/2022 Device with a working camera? Not on file Comments No Sex and Gender Information Value Date Recorded Sex Assigned at Not on file Legal Sex Female 9:04 PM EDT Gender Identity Not on file Sexual Orientation Not on file Occupation Industry Job Start Date Job End Date Working Not on file Not on file Not on file Last Filed Vital Signs Vital Sign Reading Time Taken Comments Blood Pressure 106/62 10/01/2020 11:42 AM EDT Pulse 79 10/01/2020 11:42 AM EDT Temperature 36.9 C (98.4 F) 10/01/2020 11:42 AM EDT Respiratory Rate 18 10/01/2020 11:42 AM EDT Oxygen Saturation 99% 10/01/2020 11:42 AM EDT Inhaled Oxygen Concentration - - Weight 124.7 kg (275 lb) 10/01/2020 11:42 AM EDT per pt Height 175.3 cm (5' 9 ) 10/01/2020 11:42 AM EDT Body Mass Index 40.61 10/01/2020 11:42 AM EDT Plan of Treatment Health Maintenance Due Date Last Done Comments DEPRESSION SCREENING 2001 HEPATITIS C SCREENING 08/13/2007 COVID-19 VACCINE (2023-2 5 season) 2024 09/04/2020 PAP SMEAR 10/29/2024 10/29/2021, 01/15/2019 Adult Td,Tdap Booster 06/15/2030 06/15/2020 , 01/14/2016 HEPATITIS A VACCINES Aged Out 12/14/2015 No long er eligible based on patient's age to complete this topic HIV ONE-TIME SCREENING (18-6 5 YEARS) Completed 12/23/2019 SMOKING STATUS SCREENING (On ce After 26 Yrs) Completed 10/01/2020 HIB VACCINES Aged Out No longer eligi ble based on patient's age to complete this topic MENINGOCOCCAL VACCINES (ACWY) Aged Out No longer eligible based on patient's age to complete this topic MENINGOCOCCAL VACCINES (B) Aged Out N o longer eligible based on patient's age to complete this topic PNEUMOCOCCAL VACCINES (0-49 years) Aged Out No longer eligible b ased on patient's age to complete this topic Medical Devices Not on file Procedures Procedure Name Priority Date/Time Associated Diagnosis Comments PAP TEST Routine 10/29/2021 12:00 AM EDT from Last 3 Months or Most Recently Relevant to Health Maintenance Results * Pap Smear (10/29/2021 12:00 AM EDT) 10/29/2021 11/01/2021 9:3 5 AM EDT Narrative SEE NARRATIVE - 11/03/2021 3:47 PM EDT [address] [address] Channel Process Plant Operator: Margaret Gross MD PATIENT PLACEMENT COORDINATOR Cytology Report FINAL DIAGNOSIS A. PAP SMEAR (SUREPATH) CE: SPECIMEN ADEQUACY: Satisfactory for evaluation; transformation zone present. INTERPRETATION: NEGATIVE FOR INTRAEPITHELIAL LESION OR MALIGNANCY. Electronically Signed Out By: ISIDRO Latif(ASCP) The Pap test is a screening test primarily for squamous cancers and precursors and has associated false-negative and false-positive results. New technologies such as liquid-based preparations may decrease but will not eliminate all false-negative results. Regular sampling and follow-up of unexplained clinical signs and symptoms are recommended to minimize false negative results. PROCEDURES/ADDENDA HPV Testing (Requested) Ordered Date: 11/01/2021 A. PAP SMEAR (SUREPATH) CE: Human Papilloma Virus Test Negative for high-risk human papillomavirus types 16, 18, 45 and the Other high risk probe set (Includes 31, 33, 35, 39, 51, 52, 56, 58, 59, 66, 68) by Eventfindalarity HR-HPV analysis. Clinical correlation is advised. This HPV test was performed at [facility], [address] [place] [address]. This test has been FDA approved for SurePath cervical cytology specimens. The accuracy and precision of this test for all other specimen sources has been verified in the Cytopathology Laboratory of the [facility] and has not been cleared or approved by the U.S. Food and Drug Administration. Clinical correlation is advised. CLINICAL HISTORY Date of Last Menstrual Period: Not Provided Menstrual History: Post Menopausal Other Clinical Conditions: Screening Pap SPECIMEN SOURCE A: PAP SMEAR (SUREPATH) CE Patient Name: ROSA SANFORD : 1990 (Age: 31) Sex: F Institution: [facility] Location: [facility] Date of Collection: 10/29/2021 Date of Reported: 11/03/2021 15:47 Results to: Maureen Rodriguez MD us Maureen Rodriguez MD CYTOLOGY ORDERABLES Final Re sult SEE NARRATIVE from Last 3 Months or Most Recently Relevant to Health Maintenance Insurance [facility] Advance Directives For more information, please contact: [phone] (9AM - 5PM [facility], Monday-Monday) Documents on File Type Date Recorded Patient Mine Geologist Expl anation Healthcare Proxy 08/19/2020 5:48 PM * Full Code (Latest Code Status on File) Date Activated Date Inactivated Comments 08/15/2020 4:27 PM Question Answer Comments Code Status Confirmed With: Patient Care Teams Control Cabinet Assembler Relationship Specialty Start Date End Date Nazia Short DO [email or web address] PCP - General Family Medicine 11/29/19 Additional Source Comments The information contained in this document represents components of the legal health record. It is not the complete legal health record.[facility]
--- OUTSIDE RECORDS SUMMARY | 2025-01-15 19:55 | XMS_ITS | Encounter Summary ---
Author Organization [facility] Address [address] [facility] [address] [facility] [address] [place] [phone] Phone Care Team Providers Care Drupal Developer Name Role Phone Nazia Short DO Primary Care Provider [phone] Maureen Rodriguez MD Unavailable [phone] Encounter Details Date Type Department Care Team (Late st Contact Info) Description 08/15/2020 Procedure Pass [facility] L[facility]D Procedures [address] [place] [address] Social History Tobacco Use Types Packs/Day Years Used Date Smoking Tobacco: Never Smokeless Tobacco: Never Alcohol Use Standard Drinks/Week Comments Not Currently 0 (1 standard drink = 0.6 oz pur e alcohol) prior hx, not current Comments Yes Sex and Gender Information Value Date Recorded Sex Assigned at Not on file Legal Sex Female 9:04 PM EDT Gender Identity Not on file Sexual Orientation Not on file Occupation Industry Job Start Date Job End Date Working Not on file Not on file Not on file documented as of this encounter Plan of Treatment Not on file documented as of this encounter Visit Diagnoses Not on filedocumented in this encounter Additional Health Concerns Infection Onset Date Last Indicated Resolved Time CoV-Risk 10/01/2020 10/01/2020 10/07/2020 5:57 PM EDT documented as of this encounter Care Teams Drupal Developer Relationship Specialty Start Date End Date Nazia Short DO [email or web address] PCP - General Family Medicine 11/29/19 Maureen Rodriguez MD [address] [place] [id number] [email or web address] Insurance Assigned Provider 02/26/22 documented as of this encounter Additional Source Comments The information contained in this document represents components of the legal health record. It is not the complete legal health record.[facility]
== END 2025-01-15 19:52 | disposition home or self-care (01) ==
LOC: HO.MRI 19:51
PROVIDERS: Visit Provider Family Medicine
DX: R41.3 Other amnesia (principal)
CPT/HCPCS: 70551

== ENCOUNTER 2025-04-08 14:51 | Outpatient (AMB) | payer MEDICAID, SELFPAY ==
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
--- OUTSIDE RECORDS SUMMARY | 2025-04-09 12:43 | XMS_ITS | Encounter Summary ---
Author Organization [facility] Address [address] [facility] [address] [place] [address] Phone Care Team Providers Care Dry Heat Cabinet Attendant Name Role Phone Nazia Short DO Primary Care Provider [phone] Maureen Rodriguez MD Unavailable [phone] Nazia Short DO Unavailable [phone] Encounter Details Date Type Department Care Team (Late st Contact Info) Description 08/15/2020 Procedure Pass [facility]D Procedures [address] [place] [address] Social History Tobacco Use Types Packs/Day Years [...] as of this encounter Plan of Treatment Upcoming Encounters Date Type Department Care Team (Late Contact Info) Description 03/20/2025 Procedure Pass [facility], [facility] [address] [place] [address] 05/02/2025 12:10 PM EST Office Visit [facility] OBGYN & Midwifery [address] [place] [address] [place] [address] Aleta Roberts MD [address] [place] [address], [address] [place] [address] [email or web address] 12/01/2025 2:30 PM EDT Appointment [facility], [address] [address] System, Provider Not In, [facility] [address] [address] documented as of this encounter Visit Diagnoses Not on filedocumented in this encounter Additional Health Concerns Infection Onset Date Last Indicated Resolved Time CoV-Risk 10/01/2020 10/01/2020 10/07/2020 5:57 PM EDT documented as of this encounter Care Teams Dry Heat Cabinet Attendant Relationship Specialty Start Date End Date Nazia Short DO PCP - General Family Medicine 11/29/19 Maureen Rodriguez MD [address] [place] [address] Insurance Assigned Provider 02/26/22 Nazia Short DO [address] [place] [address] Insurance Assigned Provider 04/05/25 documented as of this encounter Additional Source Comments The information contained in this document represents components of the legal health record. It is not the complete legal health record.[facility]
--- OUTSIDE RECORDS SUMMARY | 2025-04-09 12:43 | XMS_ITS | Clinical Summary ---
Author Organization [facility] Address [address] [facility] [address] [place] [address] Phone Care Team Providers Care Light Truck Driver Name Role Phone Nazia Short DO Primary Care Provider Nazia Short DO Unavailable [phone] Allergies No known active allergies Medications vitamins-DHA [...] Postdates IOL at 41w1d 08/13/20 20:30 SVE /-2, vertex by sutures. Elijah regularly, opted for expectant mgmt 08/14/20 01:00 SVE 70/-2, Cook cervical ripening balloon placed 06:10 balloon out 07:00 SVE 70/-3 Assessment & Plan (08/14/2020 11:43 AM EDT): [...] well-supported by partner. SVE per pt request: , could not sweep membranes. Discussed r/b of [...] Informed of virtual visit schedule and will pickle cutter a blood pressure cuff before next visit. [...] out again to discuss childbirth ed and recruitment assistant offerings. Will return in ~4wks for repeat [...] (06/15/2020): 146; the 3 hour GTT normal Encounters Date Type Department Care Team Description 03/24/2025 [facility] RISK SCORES SYSTEM GENERATED External System Generated Encounter [address] [place] [address] Unknown, MD Zahira 03/20/2025 Transcribe Orders Virtual Department [address] [place] [address] Nazia Short, Breast screening (Primary Dx) 02/17/2025 [facility] RISK SCORES SYSTEM GENERATED External System Generated Encounter [address] [place] [address] Unknown, Unknown, from Last 3 Months Immunizations Immunization Administration Dates Next Due Hepatitis [...] 10/01/2020 11:42 AM EDT Plan of Treatment Upcoming Encounters Date Type Department Care Team (Late st Contact Info) Description 03/20/2025 Procedure Pass [facility], [facility] [address] [place] [address] 05/02/2025 12:10 PM EST Office Visit [facility] OBGYN & Midwifery [address] [place] [address] [place] [address] Aleta Roberts MD [address] [place] [address], [address] [place] [address] [email or web address] 12/01/2025 2:30 PM EDT Appointment [facility], [address] [address] System, Provider Not In, [facility] [address] [address] Health Maintenance Due Date Last Done Comments DEPRESSION SCREENING 2001 PAP SMEAR 10/29/2024 10/29/2021, 01/15/2019 INFLUENZA VACCINE (#1) 2024 03/19/2020 COVID-19 VACCINE (2 - 2024-2 6 season) 2025 09/04/2020 Adult Td,Tdap Booster 06/15/2030 06/15/2020 , 01/14/2016 HEPATITIS A VACCINES Aged Out 12/14/2015 No long er eligible based on patient's age to complete this topic HEPATITIS C SCREENING Completed 12/23/2019 HIV ONE-TIME SCREENING (18-6 5 YEARS) Completed [...] PAP TEST Routine 10/29/2021 12:00 AM EDT HEPATITIS B SURFACE ANTIGEN Routine 12/23/2019 8:52 AM EDT Encounter for supervision of normal first in first trimester from Last 3 Months or Most Recently Relevant to Health Maintenance Results * Pap Smear (10/29/2021 12:00 AM EDT) 10/29/2021 11/01/2021 9:3 5 AM EDT Narrative SEE NARRATIVE - 11/03/2021 3:47 PM EDT [address] [address] Roentgenology Teacher: Margaret Gross MD TIP OUT WORKER Cytology Report FINAL DIAGNOSIS A. PAP SMEAR (SUREPATH) CE: SPECIMEN ADEQUACY: Satisfactory for evaluation; transformation zone present. INTERPRETATION: NEGATIVE FOR INTRAEPITHELIAL LESION OR MALIGNANCY. Electronically Signed Out By: ISIDRO Latif([facility]) The Pap test is a screening test [...] 52, 56, 58, 59, 66, 68) by INCIDE Onclarity HR-HPV analysis. Clinical correlation is advised. This HPV test was performed at [facility], [address] [place] [address]. This test has been FDA approved for SurePath cervical cytology specimens. The accuracy and precision of this test for all other specimen sources has been verified in the Cytopathology Laboratory of the [facility] and has not been cleared or approved by the U.S. Food and Drug Administration. Clinical correlation is advised. CLINICAL HISTORY Date of Last Menstrual Period: Not Provided Menstrual History: Post Menopausal Other Clinical Conditions: Screening Pap SPECIMEN SOURCE A: PAP SMEAR (SUREPATH) CE Patient Name: ROSA SANFORD : 1990 (Age: 31) Sex: F Institution: [facility] Location: [facility] Date of Collection: 10/29/2021 Date of Reported: 11/03/2021 15:47 Results to: Maureen Rodriguez MD us Maureen Rodriguez MD CYTOLOGY ORDERABLES Final Re sult SEE NARRATIVE * Hepatitis B surface antigen (12/23/2019 8:52 AM EDT) HBV SURFACE ANTIGEN NON-REACTI VE NON-REACTI VE [facility] Blood 12/23/2019 8:52 AM EDT 12/23/2019 9:00 AM EDT Jeff Johnson MD LAB BLOOD BKR ORDERABLES Final R esult [facility] [address] [place] [address] from Last 3 Months or Most Recently Relevant to Health Maintenance Insurance [facility] ACO [facility]CO [facility] [place] [phone] Advance Directives For more information, please contact: [phone] (9AM - 5PM [facility], Monday-Monday) Documents on File Type Date Recorded Patient Fur Floor Worker Expl anation Healthcare Proxy 08/19/2020 5:48 PM * Full Code (Latest Code Status on File) Date Activated Date Inactivated Comments 08/15/2020 4:27 PM Question Answer Comments Code Status Confirmed With: Patient Care Teams Light Truck Driver Relationship Specialty Start Date End Date Nazia Short DO PCP - General Family Medicine 11/29/19 Nazia Short DO [address] [place] [phone] Insurance Assigned Provider 04/05/25 Additional Source Comments The information contained in this document represents components of the legal health record. It is not the complete legal health record.[facility]
== END 2025-04-08 15:33 | disposition home or self-care (01) ==
LOC: HO.HSM 14:51
PROVIDERS: Visit Provider Psychiatry & Neurology Neurology
DX: R44.0 Auditory hallucinations (principal); G93.9 Disorder of brain, unspecified
CPT/HCPCS: 99205

== ENCOUNTER → 2025-04-08 14:51 | Outpatient (BNVA) | payer MEDICAID, SELFPAY | PROVIDERS: Visit Provider Psychiatry & Neurology Neurology | DX: R44.0 Auditory hallucinations (principal) | CPT/HCPCS: 99202 ==

== ENCOUNTER 2025-05-14 09:04 | Outpatient (REF) | payer MEDICAID, SELFPAY ==
--- OUTSIDE RECORDS SUMMARY | 2025-05-14 09:08 | XMS_ITS | Clinical Summary ---
Author Organization [facility] Address [address] [address] Phone Care Team Providers Care Urology Teacher Name Role Phone Nazia Short DO Primary Care Provider Nazia Short DO Unavailable [phone] Allergies No known active allergies Medications vitamins-DHA [...] Active BIOTIN ORAL Take by mouth. Active lamoTRIgine (LAMICTAL) 200 MG IMMEDIATE release tablet Take by mouth. 07/22/2024 Active Active Problems Problem Noted Date Diagnosed Date Labial hypertrophy 05/02/2025 Assessment & Plan (05/02/2025 1:32 PM EST): Patient with bilateral hypertrophy of labia minora, both labia measuring at least 4 cm from base to edge Patient reports discomfort during intercourse and physical activity due to size of labia - interested in labial reduction Reviewed labiaplasty, R/B/A Patient expressed understanding of counseling and wants to proceed with surgery Case request submitted Normal intrauterine , antepartum 2020 Encounter for induction of labor 08/13/2020 Overview (08/14/2020): Postdates IOL at 41w1d 08/13/20 20:30 SVE 70/-2, vertex by sutures. Elijah regularly, opted for expectant mgmt 08/14/20 01:00 SVE 170/-2, Cook cervical ripening balloon placed 06:10 balloon out 07:00 SVE 470/-3 Assessment & Plan (08/14/2020 11:43 AM EDT): [...] Assessment & Plan (08/05/2020 10:47 AM EDT): Winifred is doing well. Experiencing normal 3rd trimester discomforts - strategies reviewed. Feeling some nervousness about labor/ - has been doing prep/research, well-supported by partner. SVE per pt request: 3, could not sweep membranes. Discussed r/b of 41st week and range of postdates plans; Winifred would like a BPP and appt at 41+0; will let us know if would like IOL instead. +FM. Denies LOF, VB, UCs. Reviewed FM, PEC, and labor precautions. NV and BPP in one week. Assessment & Plan (07/31/2020 4:01 PM EST): Winifred is feeling great. Ready for labor and excited to meet baby Tomás. No complaints. Denies vb, lof, ctxs, dfm. Has all preps for baby. Ending work soon. Assessment & Plan (07/24/2020 4:04 PM EST): TAM at 38 2/7 weeks. Winifred is feeling well. Active baby. Has had some mild tightening. Hoping for natural . Her will be with her in labor. Discussed positions such as knee-chest prenatally to help with positioning and alignment. Discussed plan for covid test on admission, coping options such as hydrotherapy, nitrous oxide. GBS negative, reviewed. TAM in one week. Assessment & Plan (07/17/2020 3:33 PM EST): Winifred feeling well, is waking up at night [...] was discussed at the time of scheduling. Winifred is doing well today. She is feeling abundant movement. Having some normal third trimester discomforts. We discussed considering modifying/cutting back on her work hours as she progresses in the third trimester to allow for more time to rest. We also continued conversation about hopes- she is very flexible and open to all different coping techniques. Winifred will have office visit with GBS in two week. Assessment & Plan (06/15/2020 4:26 PM EST): Winifred is feeling well, excited to meet baby Tomás! Desires to use hydrotherapy in labor for pain relief. Information given about childbirth education and creating a wishes sheet--Winifred will research and come back for next visit with ideas about her . Informed of virtual visit schedule and will continuous pickling line pickler helper a blood pressure cuff before next visit. Endorses good FM, denies LOF, VB, ctxns. F/U in 2 weeks for telehealth visit. Dorothy Sissimran JACQUELINE Assessment & Plan (04/24/2020 12:37 PM EST): Winifred is doing well today. Follow up spine [...] Assessment & Plan (03/25/2020 6:37 PM EST): Winifred is doing well today- just had anatomy scan, will schedule f/u for limited spine views, otherwise wnl. They have been in touch with Ayde Sebastian and plan to reach out again to discuss childbirth ed and knuckler offerings. Will return in ~4wks for repeat ultrasound and visit. Assessment & Plan (01/21/2020 11:03 PM EDT): Winifred is feeling well. NT today. Happy to [...] Encounters Date Type Department Care Team Description 05/05/2025 Telephone [facility] Obstetrics and Gynecology Clinic [address] [place] [address] Aleta Roberts MD Surgery Scheduling 05/02/2025 12:10 PM EST Office Visit [facility] Obstetrics and Gynecology Clinic [facility] [place] [address] Aleta Roberts, MD Encounter for gynecological examination without abnormal finding (Primary Dx); Labial hypertrophy 04/21/2025 [facility] RISK SCORES SYSTEM GENERATED External System Generated Encounter [address] [place] [address] Unknown, Unknown, 03/24/2025 [facility] RISK SCORES SYSTEM GENERATED External System Generated Encounter [address] [place] [address] Unknown, Unknown, 03/20/2025 Transcribe Orders Virtual Department [address] [place] [address] Nazia Short, DO Breast screening (Primary Dx) 02/17/2025 [facility] RISK SCORES SYSTEM GENERATED External System Generated Encounter [address] [place] [address] Unknown, Unknown, from Last 3 Months Immunizations [...] Answer Date Recorded No 10/17/2022 No 10/17/2022 Reliable internet access [...] Sign Reading Time Taken Comments Blood Pressure 118/76 05/02/2025 12:10 PM EST Pulse 79 10/01/2020 11:42 AM EDT Temperature 36.9 C (98.4 F) 10/01/2020 11:42 AM EDT Respiratory Rate 18 10/01/2020 11:42 AM EDT Oxygen Saturation 99% 10/01/2020 11:42 AM EDT Inhaled Oxygen Concentration - - Weight 91.2 kg (201 lb) 05/02/2025 12:10 PM EST Height 175.3 cm (5' 9 ) 10/01/2020 11:42 AM EDT Body Mass Index 29.68 10/01/2020 11:42 AM EDT Plan of Treatment Upcoming Encounters Date Type Department Care Team (Late st Contact Info) Description 03/20/2025 Procedure Pass [address] [address] 06/17/2025 Hospital Encounter OR Admitting Dept - Virtual Department [address] [place] [address] Aleta Roberts MD [address] [place] [address], [address] [place] [address] [email or web address] 06/17/2025 Procedure Pass [place] Admitting Dept - Virtual Department [address] [place] [address] 12/01/2025 2:30 PM EDT Appointment [address] [address] System, Provider Not In, [place] [address] Scheduled Procedures Name Priority Associated Diagnoses Date/Ti me REDUCTION LABIA Labial hypertrophy Health Maintenance Due Date Last Done Comments DEPRESSION SCREENING 2001 SCREENING FOR DIABETES 10/29/2024 10/29/2021, 2020 INFLUENZA VACCINE (#1) 2024 03/30/2022, 2019 COVID-19 VACCINE ( season) 2025 03/30/2022, 05/08/2021, 10/02/2020, Additional history exists PAP SMEAR 05/02/2028 05/02/2025, 10/20, 01/15/2019 Adult Td,Tdap Booster 06/15/2030 06/15/2020, 016 HEPATITIS A VACCINES Aged Out 12/14/2015 No long er eligible based on patient's age to complete this topic HEPATITIS C SCREENING Completed 12/23/2019 HIV ONE-TIME SCREENING (18-65 YEARS) Completed 12/23/2019 SMOKING STATUS SCREENING (Once After 26 Yrs) Completed 05/02/2025 HIB VACCINES Aged Out No longer eligi ble based on patient's age to complete this topic MENINGOCOCCAL VACCINES (ACWY) Aged Out No longer eligible based on patient's age to complete this topic MENINGOCOCCAL VACCINES (B) Aged Out N o longer eligible based on patient's age to complete this topic PNEUMOCOCCAL VACCINES (0-49 years) Aged Out No longer eligible based on patient's age to complete this topic Medical Devices Not on file Procedures Procedure Name Priority Date/Time Associated Diagnosis Comments PAP TEST Routine 05/02/2025 1:13 PM EST Encounter for gynecological examination without abnormal finding CERVICAL CANCER SCREENING Routine 05/02/2025 1:13 PM EST Encounter for gynecological examination without abnormal finding GENETIC PROBE AMPLIFICATION FOR HUMAN PAPILLOMAVIRUS Routine 05/02/2025 1:13 PM EST Encounter for gynecological examination without abnormal finding CHLAMYDIA TRACHOMATIS AND NEISSERIA GONORRHOEAE NUCLEIC ACID DETECTION Routine 05/02/2025 1:13 PM EST Encounter for gynecological examination without abnormal finding HEPATITIS B SURFACE ANTIGEN Routine 12/23/2019 8:52 AM EDT Encounter for supervision of normal first in first trimester from Last 3 Months or Most Recently Relevant to Health Maintenance Results * Human Papillomavirus (HPV), Nucleic Acid Amplification (05/02/2025 1:13 PM EST) HPV 16 Negative 05/09/2025 1:53 PM EST [facility] HPV 18 Negative 05/09/2025 1:53 PM EST [facility] HPV 45 Negative 05/09/2025 1:53 PM EST [facility] HPV 31 Negative 05/09/2025 1:53 PM EST [facility] HPV 51 Negative 05/09/2025 1:53 PM EST [facility] HPV 52 Negative 05/09/2025 1:53 PM EST [facility] HPV 33, 58 Negative 05/09/2025 1:53 PM EST [facility] HPV 35, 39, 68 Negative 05/09/2025 1:53 PM EST [facility] HPV 56, 59, 66 Negative 05/09/2025 1:53 PM EST [facility] HPV Disclaimer: Performed by real-time polymerase chain reaction (PCR) at [facility], [address] [place] [address] using the FDA-approved [employer] Onclarity HPV Assay with extended genotyping. Uses of the assay in scenarios other than those approved by the FDA should be considered off-label use. The accuracy and precision of this test for all other off-label specimen sources has been verified in the Cytopathology Laboratory of the [facility] and has not been cleared or approved by the U.S. Food and Drug Administration. Clinical correlation is advised. The assay assesses the E6/E7 DNA target and utilizes human beta globin as an internal control. Cytology and HPV testing are screening assays and should not be used as the sole means of detecting cancer. False-positives and false-negatives can occur. 05/09/2025 1:53 PM EST [facility] Pap Collection (Cervix) 05/02/2025 1:13 PM EST 05/05/2025 9:01 AM EST Aleta Roberts MD LAB GENERAL OR DERABLES Final Result [address] [address] * Chlamydia trachomatis and Neisseria gonorrhoeae Nucleic Acid Amplification (05/02/2025 1:13 PM EST) N.gonorrhoeae, AMP Not Detected Not Detected 05/05/2025 9:02 AM EST [facility] Comment:This test is not rec ommended for evaluation of suspected sexual abuse or for other medico-legal indications. This assay should not be used to determine therapeutic success as DNA may persist after appropriate antimicrobial therapy. This test has not been evaluated in patients younger than 14 years of age. Penile and Urethral specimens are not approved specimen types, interpret results with caution. C.trachomatis, AMP Not Detected Not Detected 05/05/2025 9:02 AM EST [facility] Comment:This test is not rec ommended for evaluation of suspected sexual abuse or for other medico-legal indications. This assay should not be used to determine therapeutic success as DNA may persist after appropriate antimicrobial therapy. This test has not been evaluated in patients younger than 14 years of age. Penile and Urethral specimens are not approved specimen types, interpret results with caution. Swab (Endocervix) Non-Blood Collection / Unknown 05/02/2025 1:13 PM EST 05/02/2025 1:13 PM EST Narrative [facility] - 05/05/2025 9:[address]/NG Assay performance has not been evaluated on patients less than 14 years of age Aleta Roberts MD LAB GENERAL OR DERABLES Final Result Performing Organization Address City/State/[facility] Co de Phone Number [address] [address] * Pap Test (05/02/2025 1:13 PM EST) Final Diagnosis A. PAP TEST: CERVIX SPECIMEN ADEQUACY: Satisfactory for evaluation; transformation zone absent/insufficie nt. INTERPRETATION: Negative For Intraepithelial Lesion or Malignancy. HPV RESULTS: HPV 16: Negative HPV 18: Negative HPV 45: Negative HPV 31: Negative HPV 51: Negative HPV 52: Negative HPV 33, 58: Negative HPV 35, 39, 68: Negative HPV 56, 59, 66: Negative 05/09/2025 1:53 PM EST [facility] at 1353 EST Pap Methodology This specimen was successfully pre-screened using the Three MelonsPrep Imaging System. Selected pedraza from the pipe stress engineer were reviewed by a Glove Operator. If indicated, this case was reviewed by a Pathologist. The Pap test is a screening test primarily for detecting cervical Squamous Cell Carcinoma and its precursors. The test has an inherent but low probability of error, with liquid-based methods having a reported false negative rate of about 2%. Regular sampling and follow-up of unexplained clinical signs and symptoms are recommended to minimize false negative results. 05/09/2025 1:53 PM [facility] Clinical History ICD-10: Encounter for gynecological examination without abnormal finding 05/09/2025 1:53 PM [facility] LMP? Exact Date 05/09/2025 1:53 PM [facility] LMP 04/08/2025 05/09/2025 1:53 PM [facility] Gross Description A. PAP TEST: CERVIX: 1 Preservcyt vial received labeled with two patient identifiers. 1 ThinPrep slide prepared. 05/09/2025 1:53 PM [facility] A. Adequacy Satisfactory for evaluation; transformation zone absent/insufficie nt. 05/09/2025 1:53 PM [facility] A. Interpretation Negative For Intraepithelial Lesion or Malignancy. 05/09/2025 1:53 PM [facility] Pap Collection (Cervix) 05/02/2025 1:13 PM EST 05/02/2025 1:13 PM EST us Aleta Roberts MD LAB CYTOLOGY O RDERABLES Final Result [address] [address] * Hepatitis B surface antigen (12/23/2019 8:52 AM EDT) HBV SURFACE ANTIGEN NON-REACTI VE NON-REACTI VE [facility] Blood 12/23/2019 8:52 AM EDT 12/23/2019 9:00 AM EDT us Jeff Johnson MD LAB BLOOD BKR ORDERABLES Final R esult Performing Organization Address City/[facility]/ZIP Co de Phone Number [address] [address] from Last 3 Months or Most Recently Relevant to Health Maintenance Insurance [facility]CO [facility] Member Subscriber Plan / Payer (Ef fective 2024-Present) Name:Winifred Gottlieb Relation to Subscriber:Self Name:Winifred Gottlieb Payer ID:[id number] (NAIC) Group ID:Not on file Type:Medicaid Address: [employer] CLAIMS [address] BRAULIO TAVERAS MD [facility] [place] [address] [place] [address] Advance Directives For more information, please contact: [phone] (9AM - 5PM [facility], Monday-Monday) Documents on File Type Date Recorded Patient Automobile Brakes Bonder Expl anation Healthcare Proxy 08/19/2020 5:48 PM * Full Code (Latest Code Status on File) Date Activated Date Inactivated Comments 08/15/2020 4:27 PM Question Answer Comments Code Status Confirmed With: Patient Care Teams Urology Teacher Relationship Specialty Start Date End Date Nazia Short DO PCP - General Family Medicine 11/29/19 Nazia Short DO [address] [place] [id number] Insurance Assigned Provider 04/05/25 Additional Source Comments The information contained in this document represents components of the legal health record. It is not the complete legal health record.[facility]
--- OUTSIDE RECORDS SUMMARY | 2025-05-14 09:09 | XMS_ITS | Encounter Summary ---
Author Organization [facility] Address [address] [address] Phone Care Team Providers Care Forepart Rounder Name Role Phone Nazia Short DO Primary Care Provider [phone] Maureen Rodriguez MD Unavailable [phone] Nazia Short DO Unavailable [phone] Encounter Details Date Type Department Care Team (Late st Contact Info) Description 08/15/2020 Procedure Pass [facility] L&D Procedures [address] [place] [id number] Social History Tobacco Use Types Packs/Day Years [...] st Contact Info) Description 03/20/2025 Procedure Pass [facility], [address] [address] 06/17/2025 Hospital Encounter OR Admitting Dept - Virtual Department [address] [place] [id number] Aleta Roberts, MD [address] [facility], [address] [place] [address] [email or web address] 06/17/2025 Procedure Pass OR Admitting Dept - Virtual Department [address] [place] [address] 12/01/2025 2:30 PM EDT Appointment [facility], [facility]- [address] [address] System, Provider Not In, [facility] [address] [address] Scheduled Procedures Name Priority Associated Diagnoses Date/Ti me REDUCTION LABIA Labial hypertrophy documented as of this encounter Visit Diagnoses Not on filedocumented in this encounter Additional Health Concerns Infection Onset Date Last Indicated Resolved Time CoV-Risk 10/01/2020 10/01/2020 10/07/2020 5:57 PM EDT documented as of this encounter Care Teams Forepart Rounder Relationship Specialty Start Date End Date Nazia Short DO PCP - General Family Medicine 11/29/19 Maureen Rodriguez MD [address] [place] [id number] Insurance Assigned Provider 02/26/22 Nazia Short DO [address] [place] [address] Insurance Assigned Provider 04/05/25 documented as of this encounter Additional Source Comments The information contained in this document represents components of the legal health record. It is not the complete legal health record.[facility]
--- NOTE | 2025-05-14 10:27 | EEG_ITS ---
History: H/O PTSD- pt having episodes of Auditory hallucinations- pt is aware of the voice and calls the voice spiritual- admitted in Jun 2024 for psychotic symptoms- Brain MRI abnormal showing right posterior small lesion Medication: mo meds listed Technical Description Photic Stimulation: completed Hyperventilation: performed- good effort Behavioral State: pleasant - during setup pt c/o auditory hallucination but during the recording of the study pt stated that she remained asymptomatic State of Consciousness: awake with brief periods of drowsy Skull Defect: no Sedation: no Handedness: Right Duration: 34 mins 40 secs Last Meal: 05/14/25 7am Time / date of last symptom: 05/15/25 during EEG set-up 10 mins prior to start of study Description: This is a 16 channel EEG with an EKG lead. Patient is reported mostly awake during the tracing. Background EEG rhythm is symmetric alpha posteriorly lower amplitude fast anteriorly. Intermittently occipital area sharp wave were noted that seem to me somewhat more prominent in right occipital area. Photic stimulation did not produce any significant driving. Hyperventilation was unremarkable. No cardiac arrhythmia was noted. Impression: Abnormal EEG revealing occipital area irritability probably originating on the right side. MTDD
== END 2025-05-14 09:05 | disposition home or self-care (01) ==
LOC: HO.NEURO 09:04
PROVIDERS: PCP Family Medicine; Visit Provider Psychiatry & Neurology Neurology
DX: G40.909 Epilepsy, unspecified, not intractable, without status epilepticus (principal)
CPT/HCPCS: 95816

== ENCOUNTER → 2025-05-14 10:27 | Outpatient (BNV) | payer MEDICAID, SELFPAY | PROVIDERS: PCP Family Medicine; Visit Provider Psychiatry & Neurology Neurology | DX: G40.909 Epilepsy, unspecified, not intractable, without status epilepticus (principal) | CPT/HCPCS: 95816 ==